=== PATIENT | female | born 1950 | race Caucasian/White ===

== ENCOUNTER 2017-02-28 13:10 | Inpatient (IN) | payer BC, MEDICARE ==
[2017-02-28] MEDS ORDERED: IPRATROPIUM-ALBUTEROL 3 ML NEB INHALATION STA ×2 (13:24→16:57)
[2017-02-28] MEDS ORDERED: methylPREDNISolone SOD SUCCI 125 MG/2 ML VIAL IV STA (13:24)
[2017-02-28] MEDS ORDERED: SODIUM CHLORIDE 0.9% 1,000 ML IV STA (13:24)
[2017-02-28] MEDS ORDERED: MAGNESIUM SULFATE-D5W PMX 1 GM in DEXTROSE/WATER 1 100ML.BAG IVPB STA (13:26)
--- NOTE | 2017-02-28 13:28 | ED ---
SOB HPI - General Stated Complaint: SOB Time Seen by Provider: 02/28/17 13:15 Source: patient, family, RN notes reviewed - History of Present Illness Initial Comments: This is a 66-year-old female history of COPD who presents with complaints of shortness of breath since been going on the past week but getting progressively worse over last couple days with fever cough and increased usage of her home nebulizer without much success or relief. No overt chest pain no definite phlegm production she has had however a recent cold with rhinorrhea. MD Complaint: shortness of breath - Related Data Home Medications Medication Instructions Recorded Confirmed Albuterol Inhaler [Ventolin Hfa 1 - 2 puff INHALATION RT-Q6H PRN 02/28/17 Inhaler] Budesonide [Pulmicort] 0.5 mg INHALATION RT-BID PRN 02/28/17 02/28/17 Ca/D3/Mag#11/Zinc/Camera [employer]otyping Engineer/Anibal/Bor 1 tab PO HS 02/28/17 02/28/17 [Caltrate 600+D Plus Tablet] Cefuroxime [Ceftin] 250 mg PO BID 02/28/17 02/28/17 Cetirizine HCl [Zyrtec] 10 mg PO DAILY 02/28/17 02/28/17 Ipratropium-Albuterol Nebulize 3 ml INHALATION RT-QID PRN 02/28/17 02/28/17 [Duoneb 0.5 mg-3 mg/3 ml Soln] Montelukast [Singulair] 10 mg PO HS 02/28/17 02/28/17 Multivitamins, Thera [Multivitamin 1 tab PO DAILY 02/28/17 02/28/17 (formulary)] [place]-3 Fatty Acids/Fish Oil [Fish 1 cap PO DAILY 02/28/17 02/28/17 Oil 1,000 mg Softgel] Valsartan/Hydrochlorothiazide 1 tab PO DAILY 02/28/17 02/28/17 [Valsartan-Hctz 160-12.5 mg Tab] Vit A,C & E/Lutein/Minerals 1 tab PO DAILY 02/28/17 02/28/17 [Ocuvite with Lutein Tablet] predniSONE 10 mg PO BID 02/28/17 02/28/17 tiZANidine [Zanaflex] 2 mg PO BID 02/28/17 02/28/17 Allergies Allergy/AdvReac Type Severity Reaction Status Date / Time mold Allergy Unknown Verified 02/28/17 13:59 Review of Systems ROS Statement: Those systems with pertinent positive or pertinent negative responses have been documented in the HPI. ROS Other: All systems not noted in ROS Statement are negative. General Exam - General Exam Comments Initial Comments: This is a well-developed well-nourished awake alert oriented 3 female General appearance: alert, anxious, in distress Head exam: Present: atraumatic, normocephalic, normal inspection Eye exam: Present: normal appearance, PERRL, EOMI. Absent: scleral icterus, conjunctival injection, periorbital swelling ENT exam: Present: normal exam, mucous membranes moist Neck exam: Present: normal inspection. Absent: tenderness, meningismus, lymphadenopathy Respiratory exam: Present: respiratory distress, wheezes, accessory muscle use, decreased breath sounds. Absent: rales, rhonchi, stridor Cardiovascular Exam: Present: normal rhythm, tachycardia, normal heart sounds. Absent: systolic murmur, diastolic murmur, rubs, gallop, clicks GI/Abdominal exam: Present: soft, normal bowel sounds. Absent: distended, tenderness, guarding, rebound, rigid Extremities exam: Present: normal inspection, full ROM, normal capillary refill. Absent: tenderness, pedal edema, joint swelling, calf tenderness Back exam: Present: normal inspection Neurological exam: Present: alert, oriented X3, CN II-XII intact Psychiatric exam: Present: normal affect, normal mood Skin exam: Present: warm, dry, intact, normal color. Absent: rash Course Vital Signs 02/28/17 02/28/17 02/28/17 13:16 13:34 13:43 Temperature 97.2 F L Pulse Rate 109 H 103 H 104 H Respiratory 32 H Rate Blood Pressure 155/81 O2 Sat by Pulse 91 L Oximetry 02/28/17 02/28/17 16:04 16:59 Temperature Pulse Rate 91 92 Respiratory 24 Rate Blood Pressure 174/69 O2 Sat by Pulse 95 Oximetry - Reevaluation(s) Reevaluation #1: 02/28/17 17:06 Reevaluation patient reveals that she is still dyspneic though slightly improved still with diffuse wheezing. So with accessory muscle use. Medical Decision Making - Medical Decision Making Reevaluation patient reveals that she still dyspneic still with wheezing still with accessory muscle use O she is improved somewhat. X-ray shows evidence of atelectasis I suspect a pneumonitis. I did discuss case and her family as well as with the hospitalist. The patient is requesting Dr. Trammell from pulmonary medicine for a consult. - Lab Data Result diagrams: 02/28/17 13:35 02/28/17 13:35 Lab Results 02/28/17 02/28/17 02/28/17 Range/Units 13:35 13:35 13:35 WBC 22.2 H (3.8-10.6) k/uL RBC 4.47 (3.80-5.40) m/uL Hgb 12.8 (11.4-16.0) gm/dL Hct 40.4 (34.0-46.0) % MCV 90.4 (80.0-100.0) fL MCH 28.6 (25.0-35.0) pg MCHC 31.6 (31.0-37.0) g/dL RDW 14.2 (11.5-15.5) % Plt Count 368 (150-450) k/uL Neutrophils % 89 % Lymphocytes % 7 % Monocytes % 2 % Eosinophils % 1 % Basophils % 1 % Neutrophils # 19.7 H (1.3-7.7) k/uL Lymphocytes # 1.6 (1.0-4.8) k/uL Monocytes # 0.5 (0-1.0) k/uL Eosinophils # 0.2 (0-0.7) k/uL Basophils # 0.1 (0-0.2) k/uL PT (9.0-12.0) sec INR (<1.1) APTT (22.0-30.0) sec D-Dimer (<0.60) mg/L FEU Sodium 136 L (137-145) mmol/L Potassium 4.3 (3.5-5.1) mmol/L Chloride 98 (98-107) mmol/L Carbon Dioxide 29 (22-30) mmol/L Anion Gap 9 mmol/L BUN 16 (7-17) mg/dL Creatinine 0.58 (0.52-1.04) mg/dL Est GFR (MDRD) Af Amer >60 (>60 ml/min/1.73 sqM) Est GFR (MDRD) Non-Af >60 (>60 ml/min/1.73 sqM) Glucose 148 H (74-99) mg/dL Calcium 10.0 (8.4-10.2) mg/dL Magnesium 2.0 (1.6-2.3) mg/dL Total Bilirubin 0.5 (0.2-1.3) mg/dL AST 78 H (14-36) U/L ALT 139 H (9-52) U/L Alkaline Phosphatase 114 (38-126) U/L Total Creatine Kinase <20 L (30-135) U/L CK-MB (CK-2) 0.7 (0.0-2.4) ng/mL CK-MB (CK-2) Rel Index 0.0 Troponin I <0.012 (0.000-0.034) ng/mL NT-Pro-B Natriuret Pep pg/mL Total Protein 7.5 (6.3-8.2) g/dL Albumin 4.3 (3.5-5.0) g/dL Influenza Type A RNA (Not Detectd) Influenza Type B (PCR) (Not Detectd) 02/28/17 02/28/17 02/28/17 Range/Units 13:35 13:35 13:35 WBC (3.8-10.6) k/uL RBC (3.80-5.40) m/uL Hgb (11.4-16.0) gm/dL Hct (34.0-46.0) % MCV (80.0-100.0) fL MCH (25.0-35.0) pg MCHC (31.0-37.0) g/dL RDW (11.5-15.5) % Plt Count (150-450) k/uL Neutrophils % % Lymphocytes % % Monocytes % % Eosinophils % % Basophils % % Neutrophils # (1.3-7.7) k/uL Lymphocytes # (1.0-4.8) k/uL Monocytes # (0-1.0) k/uL Eosinophils # (0-0.7) k/uL Basophils # (0-0.2) k/uL PT 10.1 (9.0-12.0) sec INR 1.0 (<1.1) APTT 20.4 L (22.0-30.0) sec D-Dimer 0.48 (<0.60) mg/L FEU Sodium (137-145) mmol/L Potassium (3.5-5.1) mmol/L Chloride (98-107) mmol/L Carbon Dioxide (22-30) mmol/L Anion Gap mmol/L BUN (7-17) mg/dL Creatinine (0.52-1.04) mg/dL Est GFR (MDRD) Af Amer (>60 ml/min/1.73 sqM) Est GFR (MDRD) Non-Af (>60 ml/min/1.73 sqM) Glucose (74-99) mg/dL Calcium (8.4-10.2) mg/dL Magnesium (1.6-2.3) mg/dL Total Bilirubin (0.2-1.3) mg/dL AST (14-36) U/L ALT (9-52) U/L Alkaline Phosphatase (38-126) U/L Total Creatine Kinase (30-135) U/L CK-MB (CK-2) (0.0-2.4) ng/mL CK-MB (CK-2) Rel Index Troponin I (0.000-0.034) ng/mL NT-Pro-B Natriuret Pep 112 pg/mL Total Protein (6.3-8.2) g/dL Albumin (3.5-5.0) g/dL Influenza Type A RNA Not Detected (Not Detectd) Influenza Type B (PCR) Not Detected (Not Detectd) - Radiology Data Radiology results: report reviewed (I did review the x-ray report is evidence of a left lower lobe plate atelectasis), image reviewed Critical Care Time Critical Care Time: Yes Critical Care Time: 35 minutes of critical care time which includes initial presentation with history physical lab x-rays reevaluation patient on several occasions. Discussion with patient family regarding the findings evaluation x-rays and labs. Evaluation of patient response to therapy. Discussion with the admitting physician. Admission orders and documentation of the above Disposition Clinical Impression: Acute exacerbation of chronic obstructive airways disease, Adult respiratory distress syndrome, Pneumonitis, Leukocytosis, Failure of outpatient treatment Disposition: ADMITTED IP TO THIS [facility] Condition: Stable
[2017-02-28] MEDS ORDERED: KETOROLAC 30 MG/ML 1 ML VIAL IVP STA ×2 (13:29→13:39)
[2017-02-28 13:48] LABS: Basophils # (A) 0.1 k/uL (0-0.2); Basophils % (A) 1 %; CH 28.9; CHCM 32.1; Eosinophils # (A) 0.2 k/uL (0-0.7); Eosinophils % (A) 1 %; HCT 40.4 % (34.0-46.0); HDW 2.26; HGB 12.8 gm/dL (11.4-16.0); Luc # (Auto) 0.08; Luc % (Auto) 0; Lymphocytes # (A) 1.6 k/uL (1.0-4.8); Lymphocytes % (A) 7 %; MCH 28.6 pg (25.0-35.0); MCHC 31.6 g/dL (31.0-37.0); MCV 90.4 fL (80.0-100.0); Mean Platelet Volume 8.1; Monocytes # (A) 0.5 k/uL (0-1.0); Monocytes % (A) 2 %; Neutrophils # (A) 19.7 k/uL (1.3-7.7); Neutrophils % (A) 89 %; RBC 4.47 m/uL (3.80-5.40); RDW 14.2 % (11.5-15.5); WBC 22.2 k/uL (3.8-10.6)
[2017-02-28 14:00] LABS: ALT 139 U/L (9-52); AST 78 U/L (14-36); Alkaline Phosphatase 114 U/L (38-126); Anion Gap 9 mmol/L; Blood Urea Nitrogen 16 mg/dL (7-17); Carbon Dioxide 29 mmol/L (22-30); Chloride 98 mmol/L (98-107); Glucose 148 mg/dL (74-99); Non-African American GFR(MDRD) >60 (>60 ml/min/1.73 sqM); Potassium 4.3 mmol/L (3.5-5.1); Sodium 136 mmol/L (137-145); Total Bilirubin 0.5 mg/dL (0.2-1.3); Total Protein 7.5 g/dL (6.3-8.2)
[2017-02-28 14:05] LABS: Prothrombin Time 10.1 sec (9.0-12.0)
[2017-02-28 14:19] LABS: Creatine Kinase <20 U/L (30-135)
[2017-02-28 14:27] LABS: Partial Thromboplastin Time 20.4 sec (22.0-30.0)
[2017-02-28 14:31] LABS: Creatine Kinase MB 0.7 ng/mL (0.0-2.4); Troponin I <0.012 ng/mL (0.000-0.034)
--- NOTE | 2017-02-28 14:51 | XR ---
EXAMINATION TYPE: XR chest 2V DATE OF EXAM: 02/28/2017 2:11 PM COMPARISON: NONE INDICATION: Difficulty breathing, COPD, short of breath TECHNIQUE: Single frontal view of the chest is obtained. FINDINGS: The heart size is normal. The pulmonary vasculature is normal. The lungs are clear. There is hyperinflation flattening the diaphragms compatible with COPD. The frontal projection some m inimal linear opacity may be above the left diaphragm suggestive of some mild plate atelectasis. IMPRESSION: 1. COPD 2. Mild plate atelectasis left base
[2017-02-28] MEDS ORDERED: LEVOFLOXACIN 750MG-D5W PMX 750 MG in DEXTROSE/WATER 1 150ML.BAG IVPB STA (17:16)
[2017-02-28] MEDS ORDERED: ALPRAZolam 0.25 MG TAB PO PRN (19:01)
[2017-02-28] MEDS ORDERED: TEMAZEPAM 15 MG CAP PO PRN (19:01)
[2017-02-28] MEDS: methylPREDNISolone SOD SUCCI 125 MG/2 ML VIAL IV SCH ×2 (19:02→23:38)
[2017-02-28] MEDS: SODIUM CHLORIDE 0.9% 1,000 ML IV SCH (19:03)
[2017-02-28] MEDS: FORMOTEROL FUMARATE 20 MCG/2 ML NEBU INHALATION SCH (19:52)
[2017-02-28] MEDS: BUDESONIDE 1 MG/2 ML NEBU INHALATION SCH (19:52)
[2017-02-28] MEDS: IPRATROPIUM-ALBUTEROL 3 ML NEB INHALATION SCH ×2 (19:53→23:38)
[2017-02-28] MEDS ORDERED: IPRATROPIUM-ALBUTEROL 3 ML NEB INHALATION SCH (20:00)
[2017-02-28] MEDS: MONTELUKAST 10 MG TAB PO SCH (20:19)
[2017-02-28] MEDS: CALCIUM CARB-VIT D 500MG-200UN 1 EACH TAB PO SCH (20:19)
[2017-02-28] MEDS: HEPARIN SODIUM,PORCINE 5,000 UNIT/ML 1 ML VIAL SQ SCH (20:20)
[2017-03-01] MEDS: IPRATROPIUM-ALBUTEROL 3 ML NEB INHALATION SCH ×5 (03:33→20:07)
[2017-03-01 04:48] VITALS: BMI 25.6
[2017-03-01] MEDS: methylPREDNISolone SOD SUCCI 125 MG/2 ML VIAL IV SCH ×3 (06:03→17:46)
[2017-03-01] MEDS: LORATADINE 10 MG TAB PO SCH (07:12)
[2017-03-01] MEDS: HYDROCHLOROTHIAZIDE 12.5 MG CAP PO SCH (07:12)
[2017-03-01] MEDS: HEPARIN SODIUM,PORCINE 5,000 UNIT/ML 1 ML VIAL SQ SCH ×2 (07:12→21:00)
[2017-03-01] MEDS: VALSARTAN 160 MG TAB PO SCH (07:12)
[2017-03-01] MEDS: BUDESONIDE 1 MG/2 ML NEBU INHALATION SCH ×2 (07:22→20:07)
[2017-03-01] MEDS: FORMOTEROL FUMARATE 20 MCG/2 ML NEBU INHALATION SCH ×2 (07:22→20:07)
[2017-03-01 08:00] LABS: Basophils # (A) 0.1 k/uL (0-0.2); Basophils % (A) 0 %; CHCM 31.7; Eosinophils # (A) 0.1 k/uL (0-0.7); Eosinophils % (A) 0 %; HCT 37.3 % (34.0-46.0); HDW 2.14; HGB 11.8 gm/dL (11.4-16.0); Luc # (Auto) 0.08; Luc % (Auto) 0; Lymphocytes # (A) 1.6 k/uL (1.0-4.8); Lymphocytes % (A) 6 %; MCH 29.2 pg (25.0-35.0); MCHC 31.6 g/dL (31.0-37.0); MCV 92.1 fL (80.0-100.0); Monocytes # (A) 0.7 k/uL (0-1.0); Monocytes % (A) 3 %; Neutrophils # (A) 22.5 k/uL (1.3-7.7); Neutrophils % (A) 90 %; RBC 4.04 m/uL (3.80-5.40); RDW 14.3 % (11.5-15.5)
[2017-03-01 08:15] LABS: ALT 102 U/L (9-52); AST 36 U/L (14-36); Alkaline Phosphatase 86 U/L (38-126); Anion Gap 11 mmol/L; Blood Urea Nitrogen 15 mg/dL (7-17); Carbon Dioxide 27 mmol/L (22-30); Chloride 97 mmol/L (98-107); Glucose 161 mg/dL (74-99); Non-African American GFR(MDRD) >60 (>60 ml/min/1.73 sqM); Potassium 4.7 mmol/L (3.5-5.1); Sodium 135 mmol/L (137-145); Total Bilirubin 0.5 mg/dL (0.2-1.3); Total Protein 6.6 g/dL (6.3-8.2)
[2017-03-01] MEDS ORDERED: VIT A,C & E-LUTEIN-MINERALS 1 EACH TAB PO SCH (09:00)
[2017-03-01 10:27] LABS: Appearance,Urine Clear (Clear); Bilirubin,Urine Negative (Negative); Glucose,Urine (UA) Negative (Negative); Ketones,Urine Negative (Negative); Leukocyte Esterase,Urine Negative (Negative); Nitrite,Urine Negative (Negative); Protein,Urine Negative (Negative); Specific Gravity,Urine 1.006 (1.001-1.035); UA Billing (MACRO vs. MICRO) CHEM; Urobilinogen,Urine <2.0 mg/dL (<2.0)
--- NOTE | 2017-03-01 11:56 | HP ---
DATE OF ADMISSION: CHIEF COMPLAINT: Shortness of breath. HISTORY OF PRESENT ILLNESS: This 67-year-old woman with a past history of COPD, hypertension, and history of nicotine dependence, being followed by in the outpatient setting, not feeling well over the past 2 to 3 weeks. The patient was having increasing shortness of breath, cough and sputum and the patient came to [facility] and was admitted to the hospital for further evaluation and treatment. The chest x-ray on admission showed chronic obstructive pulmonary disease and mild atelectasis at the left base. Patient apparently spent the past few months in different hospitals related to her brother's illness according to the family. There is no history of fever, rigors or chills. No history of headache, loss of consciousness or seizures. Past medical history: COPD, hypertension, history of nicotine dependence. Medications prior to admission include: 1. Prednisone 10 mg b.i.d. 2. DuoNeb q.i.d. p.r.n. 3. Valsartan. 4. Hydrochlorothiazide. 5. Singulair 10 mg. 6. Pulmicort 0.5. 7. Zanaflex 2 mg b.i.d. 8. Ceftin 250 mg b.i.d. 9. Ventolin HFA one to two puffs q.6h p.r.n. 10. Ocuvite one tablet p.o. daily. 11. Fish oil one daily. 12. Multivitamins one p.o. daily. 14. Calcium with vitamin D q.h.s. ALLERGIES MOLD. FAMILY HISTORY: No history of heart disease or strokes in the family. SOCIAL HISTORY: Previous history of smoking. No history of alcohol intake. REVIEW OF SYSTEMS: HEENT: No diminishing hearing, diminished vision. CARDIOVASCULAR: No angina or palpitations. RESPIRATORY: As mentioned earlier. GI: As mentioned earlier. : No dysuria. Nervous: No numbness or weakness. ALLERGY/IMMUNOLOGY: No asthma or hayfever. MUSCULOSKELETAL: As mentioned earlier. HEMATOLOGY/ONCOLOGY: No history of anemia. ENDOCRINE: No history of diabetes or hypothyroidism. CONSTITUTIONAL: As mentioned earlier. DERMATOLOGY: Negative. RHEUMATOLOGY: Negative. PSYCHIATRY: As mentioned earlier. PHYSICAL EXAMINATION: The patient is alert and oriented times three. Pulse 102, blood pressure 116/77, respiratory rate 24, temperature 97.2, pulse ox 92% on 2 L. HEENT: Conjunctivae normal. Oral mucosa is moist. NECK: No jugular venous distention. No carotid bruit. No lymph node enlargement. CARDIOVASCULAR: S1, S2 muffled. RESPIRATORY: Breathing efforts markedly increased. Accessory muscles respiration acting. CARDIOVASCULAR SYSTEM: S1, S2 muffled. No murmur. No thrills. RESPIRATORY: Breath sounds diminished at the bases. Bilateral scattered rhonchi and crackles, right more than left. Expiratory wheezing also present. ABDOMEN: Soft, nontender. No mass palpable. LEGS: No edema. No swelling. Nervous system: Higher functions as mentioned earlier. Moves all four limbs. No focal deficits. LYMPHATICS: No lymph nodes palpable in the neck, axillae or groin. SKIN: No ulcer, rash or bleeding. LABS: WBC 20.2, hemoglobin 12.8, sodium is 136, AST 78, ALT is 139. Influenza is negative. ASSESSMENT: 1. Chronic obstructive pulmonary disease exacerbation with acute purulent tracheobronchitis with failure of outpatient treatment. 2. Increased WBC. 3. Hyponatremia. 4. Increased AST, ALT, of undetermined etiology. 5. Increased random blood sugar. 6. Chronic obstructive pulmonary disease history. 7. Hypertension. 8. History of nicotine dependence. RECOMMENDATIONS AND DISCUSSION: In this 67-year-old woman who presented with multiple complex medical issues, we will monitor the patient closely. Continue current medications, continue symptomatic treatment, optimize bronchodilators, avoid toxic medications. Otherwise, I would recommend repeat labs and pulmonary consultation. Guarded prognosis because of multiple complex medical issues. Further recommendations to follow. A copy of dictation forwarded to Dr. Jennifer KUMAR
[2017-03-01] MEDS: MULTIVITAMINS, THERA 1 EACH TAB PO SCH (12:01)
--- NOTE | 2017-03-01 16:19 | CONS ---
DATE OF CONSULTATION: 03/01/2017 REASON FOR CONSULTATION: Acute chronic obstructive pulmonary disease exacerbation and pneumonia. HISTORY OF PRESENTING ILLNESS: Ms. Melinda Carson is a pleasant 67-year-old female with extensive history of smoking and nicotine use and chronic hypoxic respiratory failure and baseline, severe chronic obstructive pulmonary disease, emphysema. Patient is on home oxygen and nebulizer treatment. She has not been feeling well for the last 3 or 4 days with increasing shortness of breath, wheezing, cough, congestion and not feeling well. Her sputum were turning purulent as well. With those problems, she presented into the emergency department and was subsequently evaluated and admitted into the hospital. Of note that she has been using her nebulizer more around the clock on a regular basis without any significant relief. Patient did have some episodes of cold and upper respiratory type process, but she did get a flu shot later on last year as well as pneumonia shot as well. Past medical history is significant for end-stage lung disease secondary to severe chronic obstructive pulmonary disease, emphysema, chronic persistent asthma, hypertension, hypertensive cardiovascular disease. Anxiety disorder, history of seasonal allergies. ALLERGIES: MOLD. Medications at home include: 1. Prednisone 10 mg p.o. 2 times a day. 2. DuoNeb unit dose updraft 4 times a day. 3. Losartan hydrochlorothiazide 1 daily. 4. Singulair 10 mg daily. 5. Pulmicort 0.5/2 times a day. 6. Zanaflex 2 mg 2 times a day. 7. Ceftin 250 b.i.d. 8. Albuterol inhaler 2 puffs 4 times a day as needed. 9. [place]-3 fatty acid. 10. Multivitamin. 11. ( ). 12. Calcium and vitamin D. 13. ( ) on a daily basis. In addition to above medications at home include: 1. IV fluid normal saline KVO. 2. Levaquin 500 mg daily p.o. 3. IV Solu-Medrol 60 mg q.6h. FAMILY HISTORY AND SOCIAL HISTORY: Previous history of smoking and nicotine abuse in the past. Otherwise unremarkable and noncontributory. REVIEW OF SYSTEMS: Otherwise unremarkable and noncontributory. On examination, her most recent vitals include blood pressure is 130/60, respiratory rate 18, pulse 110, temperature 98, saturation of 94% on 3 liters oxygen. HEENT: Atraumatic, normocephalic. Pharynx is clear. Narrow pharyngeal opening is present. NECK: Supple without lymphadenopathy, jugular venous distention or carotid bruit. LUNGS: Bilateral fine inspiratory and expiratory wheezing and rhonchi are present. HEART: Regular rate and rhythm. S1 and S2 audible. ABDOMEN: Soft. No rebound or rigidity. EXTREMITIES: +1 peripheral pulses. NEUROLOGICAL EXAMINATION: Otherwise, awake and alert. No focal neurologic deficits. Labs reviewed. White cell count is 22,000 up to 25,000, hemoglobin at 12 and hematocrit 40, platelet count 368,000. PT, INR, PTT within normal limits, d-dimer is 0.48, sodium is 138, potassium 4.3. BUN 16, and 0.58. The rest of the chemistry is normal except for AST and ALT are 70 and 139, came down to 36 and 102. Urinalysis unremarkable, influenza A and B both negative. The chest x-ray performed in the emergency department reviewed . There is COPD-like changes along with some atelectasis at the left base. The EKG performed in the emergency room reviewed. Normal sinus rhythm. IMPRESSION: 1. Systemic inflammatory response syndrome like process related to purulent tracheobronchitis and acute chronic obstructive pulmonary disease exacerbation. 2. Acute on chronic hypoxic respiratory failure with severe chronic obstructive pulmonary disease. 3. Upper respiratory process; however, the preliminary and initial fluids swabs has been negative. PLAN: Agree with broad-spectrum antibiotics, steroids and breathing treatments. Continue supportive care, follow clinical course closely. Will send sputum for Gram stain and culture as well.
[2017-03-01] MEDS: LEVOFLOXACIN 500 MG TAB PO SCH (17:45)
[2017-03-01] MEDS: SODIUM CHLORIDE 0.9% 1,000 ML IV SCH (17:47)
[2017-03-01] MEDS ORDERED: IPRATROPIUM-ALBUTEROL 3 ML NEB INHALATION PRN (20:41)
[2017-03-01] MEDS: MONTELUKAST 10 MG TAB PO SCH (21:01)
[2017-03-01] MEDS: CALCIUM CARB-VIT D 500MG-200UN 1 EACH TAB PO SCH (21:01)
[2017-03-02] MEDS: methylPREDNISolone SOD SUCCI 125 MG/2 ML VIAL IV SCH ×4 (00:20→17:25)
[2017-03-02] MEDS: VALSARTAN 160 MG TAB PO SCH (07:36)
[2017-03-02] MEDS: LORATADINE 10 MG TAB PO SCH (07:36)
[2017-03-02] MEDS: HYDROCHLOROTHIAZIDE 12.5 MG CAP PO SCH (07:36)
[2017-03-02] MEDS: HEPARIN SODIUM,PORCINE 5,000 UNIT/ML 1 ML VIAL SQ SCH ×2 (07:37→20:54)
[2017-03-02] MEDS: IPRATROPIUM-ALBUTEROL 3 ML NEB INHALATION SCH ×4 (07:45→20:05)
[2017-03-02] MEDS: BUDESONIDE 1 MG/2 ML NEBU INHALATION SCH ×2 (07:45→20:05)
[2017-03-02] MEDS: FORMOTEROL FUMARATE 20 MCG/2 ML NEBU INHALATION SCH ×2 (07:45→20:05)
[2017-03-02 08:03] LABS: Basophils # (A) 0.1 k/uL (0-0.2); Basophils % (A) 0 %; CH 29.1; CHCM 32.6; Eosinophils # (A) 0.1 k/uL (0-0.7); Eosinophils % (A) 0 %; HCT 36.1 % (34.0-46.0); HGB 11.7 gm/dL (11.4-16.0); Luc % (Auto) 1; Lymphocytes # (A) 2.4 k/uL (1.0-4.8); Lymphocytes % (A) 10 %; MCH 29.1 pg (25.0-35.0); MCHC 32.3 g/dL (31.0-37.0); MCV 90.1 fL (80.0-100.0); Mean Platelet Volume 7.8; Monocytes # (A) 1.3 k/uL (0-1.0); Monocytes % (A) 6 %; Neutrophils # (A) 19.6 k/uL (1.3-7.7); Neutrophils % (A) 83 %; RBC 4.01 m/uL (3.80-5.40); RDW 14.5 % (11.5-15.5); WBC 23.7 k/uL (3.8-10.6); WBC (Perox) 25.77
[2017-03-02 08:24] LABS: ALT 81 U/L (9-52); AST 24 U/L (14-36); Alkaline Phosphatase 80 U/L (38-126); Anion Gap 9 mmol/L; Blood Urea Nitrogen 19 mg/dL (7-17); Carbon Dioxide 30 mmol/L (22-30); Chloride 100 mmol/L (98-107); Glucose 103 mg/dL (74-99); Non-African American GFR(MDRD) >60 (>60 ml/min/1.73 sqM); Potassium 4.5 mmol/L (3.5-5.1); Sodium 139 mmol/L (137-145); Total Bilirubin 0.5 mg/dL (0.2-1.3); Total Protein 6.5 g/dL (6.3-8.2)
--- NOTE | 2017-03-02 08:52 | PN ---
DATE OF SERVICE: 03/01/2017 This is a 67-year-old woman who was admitted with COPD acute exacerbation, also recurrent tracheobronchitis. The patient is being closely monitored at this time. Dr. Trammell has seen the patient and care has been coordinated. No chest pain or palpitation. . No fever. On exam, alert and oriented x3. Pulse is 110, blood pressure is 174/79, respirations 18, temperature 97.8, pulse ox 93% on 3 L. HEENT: Conjunctivae normal. NECK: No jugular venous distension. CARDIOVASCULAR SYSTEM: S1, S2, muffled. RESPIRATORY: Breath sounds diminished at the bases. Scattered rhonchi, no crackles. Abdomen is soft, nontender. No mass palpable. LEGS: No edema, no swelling. NERVOUS SYSTEM: Higher functions as mentioned, moves all 4 limbs. LYMPHATIC: No lymph node enlargement if the neck, axillae or groin. SKIN: No ulcer, rash or bleeding. NERVOUS SYSTEM: No focal deficits. Labs are at this time shows bilateral scattered rhonchi. WBC is 25. Sodium 135. Influenza is negative. ASSESSMENT: 1. Chronic obstructive pulmonary disease acute exacerbation, with acute purulent tracheobronchitis with failure of outpatient treatment as well as systemic inflammatory response syndrome. 2. Increased WBC. 3. Hyponatremia. 4. Increased AST, ALT of undetermined etiology. 5. Increased random blood sugar. 6. Chronic obstructive pulmonary disease history. 7. Hypertension. 8. History of nicotine dependence. 9. FULL CODE. RECOMMENDATION: In this 67-year-old woman who presented with multiple complex medical issues, will monitor the patient closely. Continue with the current medications and continue the symptomatic treatment. Continue with the broad-spectrum IV antibiotics. Continue with bronchodilators. Continue the rest of the medications, DVT prophylaxis. Closely follow with Pulmonary. Guarded prognosis because of multiple complex medical issues. Further recommendations to follow.
--- NOTE | 2017-03-02 11:55 | P.PN ---
Subjective This is a pleasant 67-year-old female being evaluated and examined today on the fifth floor. This patient has an extensive history of smoking Shae nicotine dependence. Patient also has chronic hypoxic respiratory failure at baseline, and severe chronic obstructive pulmonary disease, emphysema. Patient is on home oxygen and nebulizer treatments. She has not been feeling well for the last 3 or 4 days and has some increase in her shortness of breath, wheezing cough, congestion and generalized malaise. Her sputum was also purulent. With those problems she presented to the emergency department and was admitted to the hospital. She has been using her nebulizer more freely around the clock at home without any significant relief. Upon examination the patient is resting up in bed on 3 L of oxygen. She states she continues to feel wheezy and congested. She is unable to bring up any of her secretions due to the thickness. Objective - Vital Signs Vital signs: Vital Signs Temp 97.8 F 03/02/17 07:00 Pulse 108 H 03/02/17 11:32 Resp 18 03/02/17 08:00 BP 135/62 03/02/17 07:00 Pulse Ox 94 L 03/02/17 07:48 Intake & Output 03/01/17 03/02/17 03/02/17 18:59 06:59 18:59 Intake Total 1600 1180 600 Output Total 600 Balance 1000 1180 600 Weight 63.503 kg Intake: Intake, IV Titration 160 Amount Sodium Chloride 0.9% 1, 160 000 ml @ 20 mls/hr IV . Q24H LEIDY Rx#:[id number] Oral 1440 1180 600 Output: Urine 600 Other: # Voids 2 2 - Exam GENERAL EXAM: Alert, active, comfortable in no apparent distress. HEAD: Normocephalic. EYES: Normal reaction of pupils, equal size. NOSE: Clear with pink turbinates. THROAT: No erythema or exudates. NECK: No masses, no JVD. CHEST: No chest wall deformity. LUNGS: Equal air entry, lung sounds course in nature. She does have finances to her and expiratory wheezes and rhonchi scattered throughout. CVS: S1 and S2 normal with no audible mumurs, regular rhythm. ABDOMEN: No hepatosplenomegaly, normal bowel sounds, no guarding or rigidity. EXTREMITIES: No edema noted, pedal pulses palpable. SKIN: No rashes CENTRAL NERVOUS SYSTEM: No focal deficits, tone is normal in all 4 extremities. - Labs CBC & Chem 7: 03/02/17 07:21 03/02/17 07:21 Labs: Abnormal Lab Results - Last 24 Hours (Table) 03/02/17 03/02/17 Range/Units 07:21 07:21 WBC 23.7 H (3.8-10.6) k/uL Neutrophils # 19.6 H (1.3-7.7) k/uL Monocytes # 1.3 H (0-1.0) k/uL BUN 19 H (7-17) mg/dL Glucose 103 H (74-99) mg/dL ALT 81 H (9-52) U/L Assessment and Plan Plan: Assessment Systemic inflammatory response syndrome-like process related to her purulent tracheobronchitis Purulent tracheobronchitis Acute exacerbation of severe chronic obstructive pulmonary disease Acute on chronic hypoxic respiratory failure Chronic severe persistent asthma Hypertension Plan Medications have been reviewed and will be continued as ordered. We will continue with her nebulizer treatments, pulmonary hygiene, and supportive care. Mucinex has been ordered to help with her secretions. Repeat chest x-ray tomorrow. Incentive spirometer and flutter valve initiated and encouraged. We will continue to monitor labs/results and adjust treatment as necessary. I performed an examination of the patient and discussed their management with the nurse practitioner. I have reviewed the nurse practitioner's note and agree with the documented findings and plan of care.
[2017-03-02] MEDS: MULTIVITAMINS, THERA 1 EACH TAB PO SCH (12:19)
[2017-03-02] MEDS: guaiFENesin 600 MG TABLET.ER PO SCH ×2 (12:19→20:53)
[2017-03-02] MEDS: SODIUM CHLORIDE 0.9% 1,000 ML IV SCH (17:16)
[2017-03-02] MEDS: LEVOFLOXACIN 500 MG TAB PO SCH (17:23)
[2017-03-02] MEDS: CALCIUM CARB-VIT D 500MG-200UN 1 EACH TAB PO SCH (20:54)
[2017-03-02] MEDS: MONTELUKAST 10 MG TAB PO SCH (20:54)
[2017-03-03] MEDS: methylPREDNISolone SOD SUCCI 125 MG/2 ML VIAL IV SCH ×3 (00:20→12:42)
--- NOTE | 2017-03-03 05:44 | PN ---
This 67-year-old woman who was admitted with COPD acute exacerbation as well as acute purulent tracheobronchitis is still having some shortness of breath. Pulmonary Dr. Trammell is following the patient closely. No chest pain or palpitations. No fever. On exam, alert and oriented x3. Pulse 102, blood pressure 137/63, respirations 18, temperature 97.8, pulse ox 94% on 3 L. HEENT: Conjunctivae normal. NECK: No jugular venous distention. CARDIOVASCULAR: S1 and S2, muffled. RESPIRATORY: Breath sounds diminished at the bases. Bilateral scattered rhonchi and crackles. ABDOMEN: Soft, nontender. LEGS: No edema, no swelling. NERVOUS SYSTEM: No focal deficits. LABS: WBC 23.7, hemoglobin 11.7. Sodium 139, potassium 4.5. ASSESSMENT AND PLAN: 1. Chronic obstructive pulmonary disease acute exacerbation with acute purulent tracheobronchitis with failure of outpatient treatment as well as systemic inflammatory response syndrome. 2. Increased WBC. 3. Hyponatremia. 4. Increased AST, ALT, of undetermined etiology. 5. Increased random blood sugar. 6. Chronic obstructive pulmonary disease history. 7. Hypertension, essential. 8. History of nicotine dependence. 9. FULL CODE. RECOMMENDATIONS AND DISCUSSION: In this 67-year-old woman who presented with multiple complex medical issues, we will monitor the patient closely. Continue the current medications and symptomatic treatment. Otherwise at this time, I would recommend continue with bronchodilators. Continue with and closely follow with pulmonary. Further recommendations to follow. MTDD
[2017-03-03] MEDS: FORMOTEROL FUMARATE 20 MCG/2 ML NEBU INHALATION SCH ×2 (07:32→19:31)
[2017-03-03] MEDS: BUDESONIDE 1 MG/2 ML NEBU INHALATION SCH ×2 (07:32→19:31)
[2017-03-03] MEDS: IPRATROPIUM-ALBUTEROL 3 ML NEB INHALATION SCH ×4 (07:32→19:31)
[2017-03-03 07:41] LABS: Basophils # (A) 0.1 k/uL (0-0.2); Basophils % (A) 0 %; CH 29.2; CHCM 31.6; Eosinophils # (A) 0.1 k/uL (0-0.7); Eosinophils % (A) 0 %; HCT 39.6 % (34.0-46.0); HDW 2.06; HGB 12.5 gm/dL (11.4-16.0); Luc # (Auto) 0.09; Luc % (Auto) 0; Lymphocytes # (A) 1.4 k/uL (1.0-4.8); Lymphocytes % (A) 7 %; MCH 29.4 pg (25.0-35.0); MCHC 31.6 g/dL (31.0-37.0); Mean Platelet Volume 7.8; Monocytes # (A) 0.7 k/uL (0-1.0); Monocytes % (A) 3 %; Neutrophils # (A) 18.5 k/uL (1.3-7.7); Neutrophils % (A) 89 %; RBC 4.26 m/uL (3.80-5.40); RDW 14.3 % (11.5-15.5); WBC 20.9 k/uL (3.8-10.6); WBC (Perox) 22.27
--- NOTE | 2017-03-03 07:52 | XR ---
EXAMINATION TYPE: XR chest 2V DATE OF EXAM: 03/03/2017 7:31 AM COMPARISON: 02/28/2017 HISTORY: Shortness of breath TECHNIQUE: Frontal and lateral views of the chest are obtained. FINDINGS: Scattered senescent parenchymal changes noted. Hyperinflation compatible with COPD. Linear atelectasis at the right medial lung base. Heart size is stable. Mediastinal structures are stable and grossly unremarkable. No evidence for hilar prominence. Degenerative changes dorsal spine. IMPRESSION: 1. No evidence for acute pulmonary disease.Linear atelectasis at the right medial lung base.
[2017-03-03 08:09] LABS: ALT 75 U/L (9-52); AST 27 U/L (14-36); Alkaline Phosphatase 79 U/L (38-126); Anion Gap 11 mmol/L; Blood Urea Nitrogen 23 mg/dL (7-17); Calcium 10.1 mg/dL (8.4-10.2); Carbon Dioxide 26 mmol/L (22-30); Chloride 98 mmol/L (98-107); Glucose 135 mg/dL (74-99); Non-African American GFR(MDRD) >60 (>60 ml/min/1.73 sqM); Potassium 4.7 mmol/L (3.5-5.1); Sodium 135 mmol/L (137-145); Total Bilirubin 0.6 mg/dL (0.2-1.3); Total Protein 6.9 g/dL (6.3-8.2)
[2017-03-03] MEDS: VALSARTAN 160 MG TAB PO SCH (09:02)
[2017-03-03] MEDS: LORATADINE 10 MG TAB PO SCH (09:02)
[2017-03-03] MEDS: HEPARIN SODIUM,PORCINE 5,000 UNIT/ML 1 ML VIAL SQ SCH ×2 (09:02→21:43)
[2017-03-03] MEDS: guaiFENesin 600 MG TABLET.ER PO SCH ×2 (09:02→21:43)
[2017-03-03] MEDS: HYDROCHLOROTHIAZIDE 12.5 MG CAP PO SCH (09:03)
[2017-03-03] MEDS: HYDROcodone/APAP 5-325MG 1 EACH TAB PO PRN ×2 (09:03→17:44)
[2017-03-03] MEDS: MULTIVITAMINS, THERA 1 EACH TAB PO SCH (12:42)
--- NOTE | 2017-03-03 15:57 | P.PN ---
Subjective This is a pleasant 67-year-old female being evaluated and examined today on the fifth floor. This patient has an extensive history of smoking Shae nicotine dependence. Patient also has chronic hypoxic respiratory failure at baseline, and severe chronic obstructive pulmonary disease, emphysema. Patient is on home oxygen and nebulizer treatments. She has not been feeling well for the last 3 or 4 days and has some increase in her shortness of breath, wheezing cough, congestion and generalized malaise. Her sputum was also purulent. With those problems she presented to the emergency department and was admitted to the hospital. She has been using her nebulizer more freely around the clock at home without any significant relief. Upon examination the patient is resting up in bed on 3 L of oxygen. She states she is starting to feel less wheezy and congested. She is unable to bring up any of her secretions due to the thickness , however she feels this is improving. She also states she is beginning to get her energy back. Objective - Vital Signs Vital signs: Vital Signs Temp 97.7 F 03/03/17 15:00 Pulse 102 H 03/03/17 15:40 Resp 16 03/03/17 15:00 BP 138/63 03/03/17 15:00 Pulse Ox 94 L 03/03/17 15:00 Intake & Output 03/02/17 03/03/17 03/03/17 18:59 06:59 18:59 Intake Total 2250 480 500 Balance 2250 480 500 Intake: Intake, IV Titration 450 140 Amount Sodium Chloride 0.9% 1, 450 140 000 ml @ 20 mls/hr IV . Q24H [facility] Rx#:[id number] Oral 1800 480 360 Other: # Voids 3 - Exam GENERAL EXAM: Alert, active, comfortable in no apparent distress. HEAD: Normocephalic. EYES: Normal reaction of pupils, equal size. NOSE: Clear with pink turbinates. THROAT: No erythema or exudates. NECK: No masses, no JVD. CHEST: No chest wall deformity. LUNGS: Equal air entry, lung sounds course in nature. She does have faint expiratory wheezes and rhonchi scattered throughout. CVS: S1 and S2 normal with no audible mumurs, regular rhythm. ABDOMEN: No hepatosplenomegaly, normal bowel sounds, no guarding or rigidity. EXTREMITIES: No edema noted, pedal pulses palpable. SKIN: No rashes CENTRAL NERVOUS SYSTEM: No focal deficits, tone is normal in all 4 extremities. - Labs CBC & Chem 7: 03/03/17 07:17 03/03/17 07:17 Labs: Abnormal Lab Results - Last 24 Hours (Table) 03/03/17 03/03/17 Range/Units 07:17 07:17 WBC 20.9 H (3.8-10.6) k/uL Neutrophils # 18.5 H (1.3-7.7) k/uL Sodium 135 L (137-145) mmol/L BUN 23 H (7-17) mg/dL Glucose 135 H (74-99) mg/dL ALT 75 H (9-52) U/L Assessment and Plan Plan: Assessment Systemic inflammatory response syndrome-like process related to her purulent tracheobronchitis Purulent tracheobronchitis Acute exacerbation of severe chronic obstructive pulmonary disease Acute on chronic hypoxic respiratory failure Chronic severe persistent asthma Hypertension Plan Medications have been reviewed and will be continued as ordered. We will continue with her nebulizer treatments, pulmonary hygiene, and supportive care. Mucinex has been ordered to help with her secretions. Chest xray reviewed. Incentive spirometer and flutter valve initiated and encouraged. We will continue to monitor labs/results and adjust treatment as necessary. I performed an examination of the patient and discussed their management with the nurse practitioner. I have reviewed the nurse practitioner's note and agree with the documented findings and plan of care.
[2017-03-03] MEDS: LEVOFLOXACIN 500 MG TAB PO SCH (17:41)
[2017-03-03] MEDS: SODIUM CHLORIDE 0.9% 1,000 ML IV SCH (20:06)
[2017-03-03] MEDS: MONTELUKAST 10 MG TAB PO SCH (21:42)
[2017-03-03] MEDS: CALCIUM CARB-VIT D 500MG-200UN 1 EACH TAB PO SCH (21:43)
--- NOTE | 2017-03-03 22:26 | PN ---
DATE OF SERVICE: 03/03/2017 This 67-year-old woman was admitted with COPD, acute exacerbation, with acute purulent tracheobronchitis. She is improving at this time. No chest pain or palpitations. Still on bronchodilators. On exam, alert and oriented x3. Pulse 107, blood pressure 138/66, respiration 16, temperature 97.7, pulse ox 94% on 4 L. HEENT: Conjunctivae normal. NECK: No jugular venous distention. CARDIOVASCULAR SYSTEM: S1, S2 muffled. RESPIRATORY SYSTEM: Breath sounds diminished at the bases. Bilateral scattered rhonchi and crackles. Expiratory wheezing also present. ABDOMEN: Soft, non-tender. LEGS: No edema. No swelling. in NERVOUS SYSTEM: No focal deficit. LABS: WBC 20.9, hemoglobin 12.4; sodium 135. ASSESSMENT: 1. Chronic obstructive pulmonary disease, acute exacerbation, with acute purulent tracheobronchitis with failure of outpatient treatment as well as systemic inflammatory response syndrome, present on admission. 2. Increased white count, possibly secondary to systemic inflammatory response syndrome. 3. Hyponatremia, possibly hypovolemic. 4. Increased AST, ALT; undetermined etiology. 5. Increased random blood sugar. 6. Chronic obstructive pulmonary disease history. 7. Hypertension, essential. 8. History of nicotine dependence. 9. Increased random blood sugar. 10. FULL CODE. RECOMMENDATIONS AND DISCUSSION: In this 67-year-old woman who presented with multiple complex medical issues, we will monitor the patient closely, continue the current medication, continue symptomatic treatment, continue with bronchodilators and continue with steroids. Continue with empiric antibiotics. Follow closely with Dr. Moran. We will cut down the dose of steroids and continue to monitor. Further recommendations to follow. See orders for further details.
[2017-03-04] MEDS: methylPREDNISolone SOD SUCCI 40 MG/ML 1 ML VIAL IV SCH ×3 (00:02→16:06)
[2017-03-04] MEDS: IPRATROPIUM-ALBUTEROL 3 ML NEB INHALATION SCH ×4 (08:00→19:42)
[2017-03-04] MEDS: FORMOTEROL FUMARATE 20 MCG/2 ML NEBU INHALATION SCH ×2 (08:00→19:42)
[2017-03-04] MEDS: BUDESONIDE 1 MG/2 ML NEBU INHALATION SCH ×2 (08:00→19:42)
[2017-03-04] MEDS: guaiFENesin 600 MG TABLET.ER PO SCH ×2 (08:57→20:17)
[2017-03-04] MEDS: HEPARIN SODIUM,PORCINE 5,000 UNIT/ML 1 ML VIAL SQ SCH ×2 (08:58→20:17)
[2017-03-04] MEDS: HYDROCHLOROTHIAZIDE 12.5 MG CAP PO SCH (08:58)
[2017-03-04] MEDS: LORATADINE 10 MG TAB PO SCH (08:59)
[2017-03-04] MEDS: VALSARTAN 160 MG TAB PO SCH (08:59)
[2017-03-04 09:48] LABS: Basophils # (A) 0.1 k/uL (0-0.2); Basophils % (A) 0 %; CH 28.7; CHCM 31.4; Eosinophils % (A) 0 %; HDW 2.03; HGB 12.3 gm/dL (11.4-16.0); Luc # (Auto) 0.12; Luc % (Auto) 1; Lymphocytes # (A) 1.7 k/uL (1.0-4.8); Lymphocytes % (A) 8 %; MCHC 31.6 g/dL (31.0-37.0); MCV 91.7 fL (80.0-100.0); Monocytes # (A) 1.1 k/uL (0-1.0); Monocytes % (A) 5 %; Neutrophils # (A) 19.6 k/uL (1.3-7.7); Neutrophils % (A) 87 %; RBC 4.25 m/uL (3.80-5.40); RDW 14.3 % (11.5-15.5); WBC 22.6 k/uL (3.8-10.6); WBC (Perox) 24.42
[2017-03-04 10:13] LABS: ALT 58 U/L (9-52); AST 24 U/L (14-36); Alkaline Phosphatase 68 U/L (38-126); Anion Gap 12 mmol/L; Blood Urea Nitrogen 26 mg/dL (7-17); Calcium 9.8 mg/dL (8.4-10.2); Carbon Dioxide 26 mmol/L (22-30); Chloride 99 mmol/L (98-107); Glucose 166 mg/dL (74-99); Non-African American GFR(MDRD) >60 (>60 ml/min/1.73 sqM); Potassium 4.4 mmol/L (3.5-5.1); Sodium 137 mmol/L (137-145); Total Bilirubin 0.7 mg/dL (0.2-1.3); Total Protein 6.8 g/dL (6.3-8.2)
[2017-03-04] MEDS: HYDROcodone/APAP 5-325MG 1 EACH TAB PO PRN (12:05)
[2017-03-04] MEDS: MULTIVITAMINS, THERA 1 EACH TAB PO SCH (12:09)
--- NOTE | 2017-03-04 15:27 | PN ---
Patient is admitted with COPD exacerbation. Patient has significant clinical improvement but still quite wheezy and when I examined patient desaturates quickly upon ambulation, although her saturations are at her baseline. Patient remains tachycardic and clinically patient is not at her baseline. REVIEW OF SYSTEMS: CARDIOVASCULAR: No chest pain, no orthopnea, no PND, no palpitations. PULMONARY: As described in HPI. GASTROINTESTINAL: No diarrhea, nausea or vomiting. No abdominal pain. Normoactive bowel sounds. NEUROLOGIC: No headaches, no weakness, no numbness. Medications are reviewed. On physical examination, vital signs temperature 96.9, pulse of 100, respiratory rate of 17, blood pressure is 138/72, saturating at 94% on 3 L of O2 by nasal cannula. LUNG EXAMINATION: Significant expiratory wheezing, decreased air entry into bilateral lung scott. No crackles were appreciated. GENERAL: The patient is alert and oriented x3, not in any acute distress. Well developed, well nourished. HEENT: Pupils are round and equally reacting to light. EOMI. No scleral icterus. No conjunctival pallor. Normocephalic, atraumatic. No pharyngeal erythema. No thyromegaly. CARDIOVASCULAR: S1 and S2 present. No murmurs, rubs, or gallops. ABDOMEN: Soft, nontender, nondistended, normoactive bowel sounds. No palpable organomegaly. MUSCULOSKELETAL: No joint swelling or deformity. EXTREMITIES: No cyanosis, clubbing, or pedal edema. NEUROLOGICAL: Gross neurological examination did not reveal any focal deficits. SKIN: No rashes. LABORATORY DATA: CBC, CMP are abnormal for elevated WBC count of 22,600 and leukocytosis is secondary to systemic steroids which is a bit of exaggerated response which we definitely see in some people. ASSESSMENT AND PLAN: 1. Acute on chronic hypercapnic respiratory failure secondary to chronic obstructive pulmonary disease exacerbation. Continue with systemic steroids and inhalational treatments. 2. Elevated white blood cell count is reactive in nature along with systemic steroids which is contributing to that. 3. Hypovolemic hyponatremia, which improved at this point of time. 4. Nonspecific elevation of AST and ALT, now AST and ALT have come down to normal. 5. Hyperlipidemia. 6. Essential hypertension.
--- NOTE | 2017-03-04 15:31 | PN ---
Melinda Carson is a 67-year-old female who came into hospital with acute COPD exacerbation, cough, congestion. Patient remains short of breath on minimal activity and exertion, remains on supplemental oxygen, still has wheezing, feel congested, overall, however, does feel slightly better as IS is up now. Blood pressure is 138/72, respiratory rate 17, pulse 97, temperature 98, saturation of 94% on 3 L oxygen. HEENT: Atraumatic, normocephalic. Pharynx is clear. Narrow pharyngeal opening is present. No lymphadenopathy is present. Neck veins are prominent. LUNGS: Bilateral inspiratory, expiratory fine wheezing are present, especially during expiratory phase. HEART: Regular rate and rhythm. S1 and S2 audible. ABDOMEN: Soft. No rebound or rigidity. EXTREMITIES: +1 peripheral pulses. NEUROLOGICAL EXAMINATION: Otherwise awake and alert. Labs reviewed. White cell count is 22,000, hemoglobin 12, hematocrit 39, platelets 378,000. Chemistry otherwise is within normal limits. The last chest x-ray performed on 03/03/2017 reviewed and compared with the prior x-ray and no evidence of acute pulmonary disease seen, except some atelectasis on the right base. IMPRESSION: 1. Acute chronic obstructive pulmonary disease exacerbation. 2. Purulent tracheobronchitis. 3. Systemic inflammatory response syndrome like process with leukocytosis. 4. Right lower lobe subsegmental atelectasis, and acute on chronic hypoxic respiratory failure. Plan is to continue antibiotics. Continue breathing treatments, steroids, start tapering steroids slowly. Continue other supportive care. Increase activity as tolerated. Continue deep breathing exercises and incentive spirometry. Will maintain patient on steroids, breathing treatments, antibiotics. Will follow.
[2017-03-04] MEDS: LEVOFLOXACIN 500 MG TAB PO SCH (16:06)
[2017-03-04] MEDS: SODIUM CHLORIDE 0.9% 1,000 ML IV SCH (20:00)
[2017-03-04] MEDS: CALCIUM CARB-VIT D 500MG-200UN 1 EACH TAB PO SCH (20:17)
[2017-03-04] MEDS: MONTELUKAST 10 MG TAB PO SCH (20:17)
[2017-03-05] MEDS: methylPREDNISolone SOD SUCCI 40 MG/ML 1 ML VIAL IV SCH ×4 (00:53→23:55)
[2017-03-05] MEDS: FORMOTEROL FUMARATE 20 MCG/2 ML NEBU INHALATION SCH ×2 (07:21→19:11)
[2017-03-05] MEDS: IPRATROPIUM-ALBUTEROL 3 ML NEB INHALATION SCH ×4 (07:21→19:11)
[2017-03-05] MEDS: BUDESONIDE 1 MG/2 ML NEBU INHALATION SCH ×2 (07:21→19:11)
[2017-03-05 07:56] LABS: Basophils # (A) 0.1 k/uL (0-0.2); Basophils % (A) 0 %; CH 29.1; CHCM 32.1; Eosinophils % (A) 0 %; HCT 37.8 % (34.0-46.0); HDW 2.06; HGB 12.3 gm/dL (11.4-16.0); Luc # (Auto) 0.16; Luc % (Auto) 1; Lymphocytes # (A) 1.6 k/uL (1.0-4.8); Lymphocytes % (A) 7 %; MCH 29.7 pg (25.0-35.0); MCHC 32.6 g/dL (31.0-37.0); MCV 91.1 fL (80.0-100.0); Monocytes % (A) 5 %; Neutrophils # (A) 18.6 k/uL (1.3-7.7); Neutrophils % (A) 87 %; RBC 4.15 m/uL (3.80-5.40); RDW 14.4 % (11.5-15.5); WBC 21.4 k/uL (3.8-10.6); WBC (Perox) 22.65
[2017-03-05 08:31] LABS: ALT 48 U/L (9-52); AST 21 U/L (14-36); Alkaline Phosphatase 66 U/L (38-126); Anion Gap 9 mmol/L; Blood Urea Nitrogen 22 mg/dL (7-17); Calcium 9.7 mg/dL (8.4-10.2); Carbon Dioxide 28 mmol/L (22-30); Chloride 100 mmol/L (98-107); Glucose 120 mg/dL (74-99); Non-African American GFR(MDRD) >60 (>60 ml/min/1.73 sqM); Potassium 4.8 mmol/L (3.5-5.1); Sodium 137 mmol/L (137-145); Total Bilirubin 0.6 mg/dL (0.2-1.3); Total Protein 6.5 g/dL (6.3-8.2)
[2017-03-05] MEDS: HEPARIN SODIUM,PORCINE 5,000 UNIT/ML 1 ML VIAL SQ SCH ×2 (08:48→20:21)
[2017-03-05] MEDS: guaiFENesin 600 MG TABLET.ER PO SCH ×2 (08:49→20:21)
[2017-03-05] MEDS: VALSARTAN 160 MG TAB PO SCH (08:49)
[2017-03-05] MEDS: LORATADINE 10 MG TAB PO SCH (08:49)
[2017-03-05] MEDS: HYDROCHLOROTHIAZIDE 12.5 MG CAP PO SCH (08:49)
[2017-03-05] MEDS: MULTIVITAMINS, THERA 1 EACH TAB PO SCH (11:26)
--- NOTE | 2017-03-05 12:37 | PN ---
Patient is admitted with COPD exacerbation. Patient has significant improvement but not at her baseline yet and wanted to stay one more day. Will continue to watch her one more day and continue with breathing treatments. Possibility of discharge tomorrow. REVIEW OF SYSTEMS: PULMONARY: As described in HPI. CARDIOVASCULAR: No chest pain, no orthopnea, no PND, no palpitations. GASTROINTESTINAL: No diarrhea, nausea or vomiting. No abdominal pain. Normoactive bowel sounds. NEUROLOGIC: No headaches, no weakness, no numbness. Medications were reviewed and no medication changes were made. On physical examination, temperature 98.2, pulse of 94, respiratory rate of 18, blood pressure is 145/66, saturating at 94% on 3 L of O2 by nasal cannula, patient used 2.5 L at home. RESPIRATORY: Mild rhonchus breath sounds, beyond that has wheezing significantly improved. Patient has good air entry into bilateral lung scott. GENERAL: The patient is alert and oriented x3, not in any acute distress. Well developed, well nourished. HEENT: Pupils are round and equally reacting to light. EOMI. No scleral icterus. No conjunctival pallor. Normocephalic, atraumatic. No pharyngeal erythema. No thyromegaly. CARDIOVASCULAR: S1 and S2 present. No murmurs, rubs, or gallops. ABDOMEN: Soft, nontender, nondistended, normoactive bowel sounds. No palpable organomegaly. MUSCULOSKELETAL: No joint swelling or deformity. EXTREMITIES: No cyanosis, clubbing, or pedal edema. NEUROLOGICAL: Gross neurological examination did not reveal any focal deficits. SKIN: No rashes. LABORATORY DATA: CBC, CMP abnormal for elevated WBC count of 21,000. . ASSESSMENT AND PLAN: 1. Acute on chronic hypercapnic respiratory failure secondary to chronic obstructive pulmonary disease exacerbation, continue with system steroids, inhalational treatments, possibility of discharge tomorrow. 2. Elevated blood cell count secondary to systemic steroids. 3. Hypovolemic hyponatremia, improved with IV fluid resuscitation. 4. Resolved nonspecific elevation of AST and ALT and essential hypertension.
[2017-03-05] MEDS: HYDROcodone/APAP 5-325MG 1 EACH TAB PO PRN (12:47)
--- NOTE | 2017-03-05 13:37 | P.PN ---
Subjective This is a pleasant 67-year-old female being evaluated and examined today on the fifth floor. This patient has an extensive history of smoking Shae nicotine dependence. Patient also has chronic hypoxic respiratory failure at baseline, and severe chronic obstructive pulmonary disease, emphysema. Patient is on home oxygen and nebulizer treatments. She has not been feeling well for the last 3 or 4 days and has some increase in her shortness of breath, wheezing cough, congestion and generalized malaise. Her sputum was also purulent. With those problems she presented to the emergency department and was admitted to the hospital. She has been using her nebulizer more freely around the clock at home without any significant relief. Upon examination the patient is resting up in bed on 3 L of oxygen. She states she is starting to feel less wheezy and congested. She is unable to bring up any of her secretions due to the thickness, however she feels this is improving. She also states she is beginning to get her energy back. over this patient is not ready for discharge today possibly tomorrow she would be ready. Objective - Vital Signs Vital signs: Vital Signs Temp 98.2 F 03/04/17 22:45 Pulse 94 03/05/17 11:27 Resp 18 03/05/17 08:00 BP 145/66 03/05/17 07:00 Pulse Ox 94 L 03/05/17 07:24 Intake & Output 03/04/17 03/05/17 03/05/17 18:59 06:59 18:59 Intake Total 640 200 200 Balance 640 200 200 Intake: Intake, IV Titration 160 Amount Sodium Chloride 0.9% 1, 160 000 ml @ 20 mls/hr IV . Q24H [facility] Rx#:[id number] Oral 480 200 200 Other: Voiding Method Toilet Toilet Toilet # Voids 3 1 2 - Exam GENERAL EXAM: Alert, active, comfortable in no apparent distress. HEAD: Normocephalic. EYES: Normal reaction of pupils, equal size. NOSE: Clear with pink turbinates. THROAT: No erythema or exudates. NECK: No masses, no JVD. CHEST: No chest wall deformity. LUNGS: Equal air entry, lung sounds course in nature. She does have faint expiratory wheezes and rhonchi scattered throughout. CVS: S1 and S2 normal with no audible mumurs, regular rhythm. ABDOMEN: No hepatosplenomegaly, normal bowel sounds, no guarding or rigidity. EXTREMITIES: No edema noted, pedal pulses palpable. SKIN: No rashes CENTRAL NERVOUS SYSTEM: No focal deficits, tone is normal in all 4 extremities. - Labs CBC & Chem 7: 03/05/17 07:20 03/05/17 07:20 Labs: Abnormal Lab Results - Last 24 Hours (Table) 03/05/17 03/05/17 Range/Units 07:20 07:20 WBC 21.4 H (3.8-10.6) k/uL Neutrophils # 18.6 H (1.3-7.7) k/uL BUN 22 H (7-17) mg/dL Glucose 120 H (74-99) mg/dL Assessment and Plan Plan: Assessment Systemic inflammatory response syndrome-like process related to her purulent tracheobronchitis Purulent tracheobronchitis Acute exacerbation of severe chronic obstructive pulmonary disease Acute on chronic hypoxic respiratory failure Chronic severe persistent asthma Hypertension Plan This patient could potentially be discharged from a pulmonary standpoint tomorrow. Medications have been reviewed and will be continued as ordered. We will continue with her nebulizer treatments, pulmonary hygiene, and supportive care. Mucinex has been ordered to help with her secretions. Chest xray reviewed. Incentive spirometer and flutter valve initiated and encouraged. We will continue to monitor labs/results and adjust treatment as necessary. I performed an examination of the patient and discussed their management with the nurse practitioner. I have reviewed the nurse practitioner's note and agree with the documented findings and plan of care.
[2017-03-05] MEDS: LEVOFLOXACIN 500 MG TAB PO SCH (17:24)
[2017-03-05] MEDS: SODIUM CHLORIDE 0.9% 1,000 ML IV SCH (17:25)
[2017-03-05] MEDS: CALCIUM CARB-VIT D 500MG-200UN 1 EACH TAB PO SCH (20:21)
[2017-03-05] MEDS: MONTELUKAST 10 MG TAB PO SCH (20:21)
[2017-03-06 07:36] VITALS: BP 133/64; RESP 16; TEMP 97.7
[2017-03-06] MEDS: methylPREDNISolone SOD SUCCI 40 MG/ML 1 ML VIAL IV SCH (08:06)
[2017-03-06] MEDS: HEPARIN SODIUM,PORCINE 5,000 UNIT/ML 1 ML VIAL SQ SCH (08:06)
[2017-03-06] MEDS: VALSARTAN 160 MG TAB PO SCH (08:06)
[2017-03-06] MEDS: guaiFENesin 600 MG TABLET.ER PO SCH (08:07)
[2017-03-06] MEDS: LORATADINE 10 MG TAB PO SCH (08:07)
[2017-03-06] MEDS: HYDROCHLOROTHIAZIDE 12.5 MG CAP PO SCH (08:07)
[2017-03-06] MEDS: FORMOTEROL FUMARATE 20 MCG/2 ML NEBU INHALATION SCH (08:11)
[2017-03-06] MEDS: BUDESONIDE 1 MG/2 ML NEBU INHALATION SCH (08:11)
[2017-03-06] MEDS: IPRATROPIUM-ALBUTEROL 3 ML NEB INHALATION SCH ×2 (08:11→11:52)
[2017-03-06] MEDS: HYDROcodone/APAP 5-325MG 1 EACH TAB PO PRN (08:12)
[2017-03-06 11:54] VITALS: PULSE 88
[2017-03-06] MEDS: MULTIVITAMINS, THERA 1 EACH TAB PO SCH (12:53)
--- NOTE | 2017-03-07 08:53 | DS ---
DATE OF ADMISSION: 02/28/2017 DATE OF DISCHARGE: 03/06/2017 Patient is admitted for chronic obstructive pulmonary disease exacerbation. Patient had significant improvement and is at her baseline. Patient will be discharged today and patient is seen and examined on the day of discharge. Vitals are stable. PHYSICAL EXAMINATION: GENERAL: The patient is alert and oriented x3, not in any acute distress. Well developed, well nourished. HEENT: Pupils are round and equally reacting to light. EOMI. No scleral icterus. No conjunctival pallor. Normocephalic, atraumatic. No pharyngeal erythema. No thyromegaly. CARDIOVASCULAR: S1 and S2 present. No murmurs, rubs, or gallops. PULMONARY: Chest is clear to auscultation, no wheezing or crackles. ABDOMEN: Soft, nontender, nondistended, normoactive bowel sounds. No palpable organomegaly. MUSCULOSKELETAL: No joint swelling or deformity. EXTREMITIES: No cyanosis, clubbing, or pedal edema. NEUROLOGICAL: Gross neurological examination did not reveal any focal deficits. SKIN: No rashes. FINAL DIAGNOSES: 1. Acute on chronic hypercapnic respiratory failure secondary to chronic obstructive pulmonary disease exacerbation. 2. Tracheobronchitis. 3. Hypovolemic hyponatremia, resolved. 4. Elevated white blood cell count, which also resolved which is actually secondary to systemic steroids. Patient will be discharged today. Please refer to my depart summary for further details of medications. Discharge diet regular. Activity as tolerated and patient will follow up with regular activity as tolerated. Patient will follow with her primary care physician in about 3 to 7 days. Follow up with Pulmonology in about a week. I spent greater than 35 minutes in total discharge process.
== END 2017-03-06 14:45 | disposition home or self-care (01) | DRG 190 ==
LOC: EC 13:10 → 5MS5E 17:09
PROVIDERS: ADMIT Internal Medicine; ATTEND Internal Medicine
DX: J44.0 Chronic obstructive pulmonary disease with (acute) lower respiratory infection (principal); J96.21 Acute and chronic respiratory failure with hypoxia; I11.9 Hypertensive heart disease without heart failure; J96.22 Acute and chronic respiratory failure with hypercapnia; E87.1 Hypo-osmolality and hyponatremia; J98.11 Atelectasis; E78.5 Hyperlipidemia, unspecified; J44.1 Chronic obstructive pulmonary disease with (acute) exacerbation; F41.9 Anxiety disorder, unspecified; J45.50 Severe persistent asthma, uncomplicated; T38.0X5A Adverse effect of glucocorticoids and synthetic analogues, initial encounter; Z79.899 Other long term (current) drug therapy; Z87.891 Personal history of nicotine dependence; Z99.81 Dependence on supplemental oxygen
CPT/HCPCS: 36415; 71020; 80053; 81003; 82550; 82553; 83735; 83880; 84484; 85025; 85379; 85610; 85730; 87040; 87502; 93005; 94640; 94667; 94668; 94760; 96365; 96375; 99291

== ENCOUNTER 2017-07-30 18:47 | Emergency (ER) | payer MEDICARE ==
[2017-07-30] MEDS ORDERED: IPRATROPIUM-ALBUTEROL 3 ML NEB INHALATION STA (20:22)
--- NOTE | 2017-07-30 20:28 | ED ---
General Adult HPI - General Chief complaint: Recheck/Abnormal Lab/Rx Stated complaint: Weakness, Diff Breathing Time Seen by Provider: 07/30/17 19:30 Source: patient, family, RN notes reviewed, old records reviewed Mode of arrival: ambulatory Limitations: no limitations - History of Present Illness Initial comments: Chief complaint history of present illness is a 67-year-old female here with family. The patient reports that she's had stuffy nose. Causing mild blurry vision sometimes but not now. Cough is nonproductive. She does have history of COPD. The patient also reports she coughed hard enough last night gagging and vomited once. She says she complains of some mild muffled hearing because her ears feel full. Mild dizziness. Patient denies fever or chest pain. - Related Data Home Medications Medication Instructions Recorded Confirmed Albuterol Inhaler [Ventolin Hfa 1 - 2 puff INHALATION RT-Q6H PRN 02/28/17 Inhaler] Montelukast [Singulair] 10 mg PO HS 02/28/17 07/30/17 Multivitamins, Thera [Multivitamin 1 tab PO DAILY 02/28/17 07/30/17 (formulary)] [place]-3 Fatty Acids/Fish Oil [Fish 1 cap PO DAILY 02/28/17 07/30/17 Oil 1,000 mg Softgel] Valsartan/Hydrochlorothiazide 1 tab PO BID 02/28/17 07/30/17 [Valsartan-Hctz 160-12.5 mg Tab] Albuterol Nebulized [Ventolin 2.5 mg INHALATION RT-TID 07/30/17 07/30/17 Nebulized] Ipratropium-Albuterol Nebulize 3 ml INHALATION RT-BID PRN 07/30/17 07/30/17 [Duoneb 0.5 mg-3 mg/3 ml Soln] Loratadine [Claritin] 10 mg PO DAILY 07/30/17 07/30/17 guaiFENesin [Mucinex] 600 mg PO BID 07/30/17 07/30/17 Previous Rx's Medication Instructions Recorded Budesonide [Pulmicort] 0.5 mg INHALATION RT-BID PRN 30 03/06/17 Days Levofloxacin [Levaquin] 500 mg PO DAILY #9 tab 07/30/17 Allergies Allergy/AdvReac Type Severity Reaction Status Date / Time mold Allergy Unknown Verified 07/30/17 19:41 Review of Systems ROS Statement: Those systems with pertinent positive or pertinent negative responses have been documented in the HPI. Review of systems. Mild nasal congestion no headache. Currently no difficulty with vision. No earache states she feels her ears are full. She feels that she has a postnasal drip from fluid from her sinuses. No chest pain. She coughed hard enough last night to vomit once. No chest pain. She has COPD. No back pain no GI/ problems no neuro deficits other than occasional dizziness with what appears to be an upper respiratory tract infection. All systems are reviewed. Past medical problems significant for COPD and hypertension. The patient had a blood pressure double last week from another hospital because was elevated. Patient reports only surgical history tonsils and bilateral tubal ligation. Family history significant for breast cancer. The patient's a non-drinker quit smoking 12 years ago. She has ALLERGIES to mold and some environmental things. ROS Other: All systems not noted in ROS Statement are negative. Past Medical History Past Medical History: COPD, Hypertension History of Any Multi-Drug Resistant Organisms: None Reported Past Surgical History: No Surgical Hx Reported Past Anesthesia/Blood Transfusion Reactions: No Reported Reaction Past Psychological History: No Psychological Hx Reported Smoking Status: Former smoker Past Alcohol Use History: None Reported Past Drug Use History: None Reported - Past Family History Father Family Medical History: Hypertension General Exam - General Exam Comments Initial Comments: General: The patient is awake and alert, in no distress, and does not appear acutely ill. Has multiple complaints all around being stuffy with a head cold type problem. Mild blurred vision sometimes, runny nose, muffled hearing. Slight dizziness with certain maneuvers. Vital signs temperature 97.0 pulse 92 respiratory rate 22 pulse ox 96% room on 3 L. Blood pressure 187/81. The patient is mildly anxious. Eye: Pupils are equal, round and reactive to light, extra-ocular movements are intact ; there is normal conjunctiva bilaterally. No signs of icterus. No visual acuity changes. Patient wears glasses for reading. Ears, nose, mouth and throat: There are moist mucous membranes and no oral lesions. Complains of a stuffy nose. Ears are clear. TMs normal. Neck: The neck is supple, there is no tenderness, no anterior cervical lymphadenopathy , thyroid not enlarged. No stridor. No carotid bruit. Cardiovascular: There is a regular rate and rhythm. No murmur, rub or gallop is appreciated. Respiratory: Mildly harsh breath sounds. History of COPD., respirations are non-labored, breath sounds are equal. No rales or rhonchi. Gastrointestinal: Soft, non-distended, non-tender abdomen without masses or organomegaly noted. There is no rebound or guarding present. No CVA tenderness. Bowel sounds are unremarkable. Back: There is no tenderness to palpation in the midline. There is no obvious deformity. No rashes noted. Musculoskeletal: Normal ROM, no tenderness, There is no pedal edema. There is no calf tenderness or swelling. Sensation intact. Pulses equal bilaterally 2+. Neurological: No neuro deficits. Skin: Skin is warm and dry and no rashes or lesions are noted. Limitations: no limitations Course Vital Signs 07/30/17 07/30/17 07/30/17 19:07 19:53 20:23 Temperature 97 F L Pulse Rate 92 86 Respiratory 22 20 Rate Blood Pressure 187/81 O2 Sat by Pulse 96 Oximetry 07/30/17 07/30/17 07/30/17 20:32 20:42 21:33 Temperature Pulse Rate 87 86 82 Respiratory 18 18 Rate Blood Pressure 169/77 142/65 O2 Sat by Pulse 96 96 Oximetry Medical Decision Making - Medical Decision Making Medical decision making; the patient had chest x-ray done 2 views and reviewed by radiologist his impression is there is a coarse interstitial density in both lungs. There is a 2 x 1 cm irregular density in the anterior lingula and left lower upper lobe. There is no pleural effusion. There is no heart failure. Bony thorax is intact. Impression pulmonary fibrosis. Normal heart. There is new lingula irregular masslike consolidation compared to old exam. This probably relates to inflammatory process in this relatively short time. Follow- up is recommended to show clearing. As read by Dr. Washington Patient was given an updraft with good results. She will be placed on Levaquin 500 one tablet per day for the next 10 days. Told follow up with her family physician and get a repeat chest x-ray after completion of antibiotics to make sure he irregular density resolves. This was also told to the daughter at bedside. Disposition Clinical Impression: Pneumonia Disposition: HOME SELF-CARE Condition: Fair Instructions: Community Acquired Pneumonia (ED) Additional Instructions: Increase fluids. Take Levaquin daily until completed. Get repeat chest x-ray to make sure that the infiltrate or masslike consolidation has gone away. Prescriptions: Levofloxacin [Levaquin] 500 mg PO DAILY #9 tab Referrals: Allen Santamaria DO [Primary Care Provider] - 1-2 days Time of Disposition: 22:21
--- NOTE | 2017-07-30 21:06 | XR ---
EXAMINATION TYPE: XR chest 2V DATE OF EXAM: 07/30/2017 COMPARISON: 03/03/2017 HISTORY: Cough and congestion TECHNIQUE: Frontal and lateral views of the chest are obtained. FINDINGS: There is coarse interstitial density in both lungs. There is a 2 x 1 cm irregular density in the anterior lingula left upper lobe. There is no pleural effusion. There is no heart failure. Bon y thorax is intact. IMPRESSION: Pulmonary fibrosis. Normal heart. There is new lingula irregular masslike consolidation compared to old exam. This probably relates to inflammatory process in this relatively short time. Fo llow-up is recommended to show clearing.
[2017-07-30] MEDS ORDERED: LEVOFLOXACIN 500 MG TAB PO STA (22:16)
[2017-07-30 22:36] VITALS: BP 165/77; PULSE 88; RESP 20; TEMP 98.2
== END 2017-07-30 22:36 | disposition home or self-care (01) ==
LOC: EC 18:47
DX: J18.9 Pneumonia, unspecified organism (principal); R42 Dizziness and giddiness; H53.8 Other visual disturbances; J44.9 Chronic obstructive pulmonary disease, unspecified; I10 Essential (primary) hypertension; Z87.891 Personal history of nicotine dependence; Z79.899 Other long term (current) drug therapy; Z91.09 Other allergy status, other than to drugs and biological substances
CPT/HCPCS: 71020; 94640; 99285

== ENCOUNTER 2017-12-19 21:13 | Inpatient (IN) | payer MEDICARE ==
--- NOTE | 2017-12-19 21:43 | ED ---
General Adult HPI - General Chief complaint: Shortness of Breath Stated complaint: SOB Time Seen by Provider: 12/19/17 21:15 Source: patient, RN notes reviewed Mode of arrival: ambulatory Limitations: no limitations - History of Present Illness Initial comments: This is a 67-year-old female who presents emergency Department with a past medical history significant for COPD. Patient states today she went to her doctor's because of a sore throat and upper back pain. Patient states he gave her some medicine for the sore throat but since then she's become more short of breath. Patient states she's taken many treatments and it does not seem to help. Patient denies any chest pain or palpitations. Patient denies any fever chills or cough. Patient states the pain is in the upper back and seems to be worse with shortness of breath. Patient denies any lightheadedness dizziness or near syncopal episode. Patient denies any abdominal pain patient denies nausea vomiting diarrhea - Related Data Home Medications Medication Instructions Recorded Confirmed Albuterol Inhaler [Ventolin Hfa 1 - 2 puff INHALATION RT-Q6H PRN 02/28/17 Inhaler] Montelukast [Singulair] 10 mg PO HS 02/28/17 07/30/17 Multivitamins, Thera [Multivitamin 1 tab PO DAILY 02/28/17 07/30/17 (formulary)] [place]-3 Fatty Acids/Fish Oil [Fish 1 cap PO DAILY 02/28/17 07/30/17 Oil 1,000 mg Softgel] Valsartan/Hydrochlorothiazide 1 tab PO BID 02/28/17 07/30/17 [Valsartan-Hctz 160-12.5 mg Tab] Albuterol Nebulized [Ventolin 2.5 mg INHALATION RT-TID 07/30/17 07/30/17 Nebulized] Ipratropium-Albuterol Nebulize 3 ml INHALATION RT-BID PRN 07/30/17 07/30/17 [Duoneb 0.5 mg-3 mg/3 ml Soln] Loratadine [Claritin] 10 mg PO DAILY 07/30/17 07/30/17 guaiFENesin [Mucinex] 600 mg PO BID 07/30/17 07/30/17 Previous Rx's Medication Instructions Recorded Budesonide [Pulmicort] 0.5 mg INHALATION RT-BID PRN 30 03/06/17 Days ampul.neb Levofloxacin [Levaquin] 500 mg PO DAILY #9 tab 07/30/17 Allergies Allergy/AdvReac Type Severity Reaction Status Date / Time mold Allergy Unknown Verified 12/19/17 21:28 Review of Systems ROS Statement: Those systems with pertinent positive or pertinent negative responses have been documented in the HPI. ROS Other: All systems not noted in ROS Statement are negative. Past Medical History Past Medical History: COPD, Hypertension History of Any Multi-Drug Resistant Organisms: None Reported Past Surgical History: Tonsillectomy Past Anesthesia/Blood Transfusion Reactions: No Reported Reaction Past Psychological History: No Psychological Hx Reported Smoking Status: Former smoker Past Alcohol Use History: None Reported Past Drug Use History: None Reported - Past Family History Father Family Medical History: Hypertension General Exam - General Exam Comments Initial Comments: GENERAL: Patient is well-developed and well-nourished. Patient is nontoxic and well- hydrated and is in mild distress. ENT: Neck is soft and supple. No significant lymphadenopathy is noted. Oropharynx is clear. Moist mucous membranes. Neck has full range of motion without eliciting any pain. EYES: The sclera were anicteric and conjunctiva were pink and moist. Extraocular movements were intact and pupils were equal round and reactive to light. Eyelids were unremarkable. PULMONARY: Unlabored respirations. Good breath sounds bilaterally. No audible rales rhonchi or wheezing was noted. CARDIOVASCULAR: There is a regular rate and rhythm without any murmurs gallops or rubs. ABDOMEN: Soft and nontender with normal bowel sounds. No palpable organomegaly was noted. There is no palpable pulsatile mass. SKIN: Skin is clear with no lesions or rashes and otherwise unremarkable. NEUROLOGIC: Patient is alert and oriented x3. Cranial nerves II through XII are grossly intact. Motor and sensory are also intact. Normal speech, volume and content. Symmetrical smile. MUSCULOSKELETAL: Normal extremities with adequate strength and full range of motion. No lower extremity swelling or edema. No calf tenderness. LYMPHATICS: No significant lymphadenopathy is noted PSYCHIATRIC: Normal psychiatric evaluation. Normal interpersonal interactions appears functionally intact in deals appropriately with others. No signs of depression. No signs of anxiety. Limitations: no limitations Course Vital Signs 12/19/17 12/19/17 12/19/17 21:25 21:51 23:11 Temperature 97.6 F 98.8 F 97.8 F Pulse Rate 95 87 90 Respiratory 26 H 22 18 Rate Blood Pressure 189/87 172/81 160/72 O2 Sat by Pulse 95 96 98 Oximetry Medical Decision Making - Medical Decision Making patient was on 3 L in the emergency department oxygenating at 96%. Patient's baseline O2 is 2 and half to 3 L EKG shows normal sinus rhythm at 91 bpm PA interval is on a 44 QRS is 74 Q-T intervals 346 QTC is 425. Patient's EKG shows no ST segment elevation or depression or T wave abnormalities are noted Chest x-ray shows no acute abnormality. Patient continued to sat at 96% the whole time while she was in the emergency department. Patient's sodium was 120 psychiatric 500 mL bolus. I spoke with Dr. Armstrong he agreed to admit the patient admitted the patient wrote admitting orders - Lab Data Result diagrams: 12/19/17 21:40 12/19/17 21:40 Lab Results 12/19/17 12/19/17 12/19/17 Range/Units 21:40 21:40 21:40 WBC 11.5 H (3.8-10.6) k/uL RBC 4.13 (3.80-5.40) m/uL Hgb 11.8 (11.4-16.0) gm/dL Hct 35.6 (34.0-46.0) % MCV 86.2 (80.0-100.0) fL MCH 28.6 (25.0-35.0) pg MCHC 33.2 (31.0-37.0) g/dL RDW 13.0 (11.5-15.5) % Plt Count 221 (150-450) k/uL Neutrophils % 88 % Lymphocytes % 8 % Monocytes % 3 % Eosinophils % 1 % Basophils % 0 % Neutrophils # 10.1 H (1.3-7.7) k/uL Lymphocytes # 0.9 L (1.0-4.8) k/uL Monocytes # 0.3 (0-1.0) k/uL Eosinophils # 0.1 (0-0.7) k/uL Basophils # 0.0 (0-0.2) k/uL PT (9.0-12.0) sec INR (<1.2) APTT (22.0-30.0) sec D-Dimer (<0.60) mg/L FEU Sodium 120 L* (137-145) mmol/L Potassium 4.1 (3.5-5.1) mmol/L Chloride 83 L (98-107) mmol/L Carbon Dioxide 24 (22-30) mmol/L Anion Gap 13 mmol/L BUN 10 (7-17) mg/dL Creatinine 0.50 L (0.52-1.04) mg/dL Est GFR (MDRD) Af Amer >60 (>60 ml/min/1.73 sqM) Est GFR (MDRD) Non-Af >60 (>60 ml/min/1.73 sqM) Glucose 117 H (74-99) mg/dL Calcium 9.5 (8.4-10.2) mg/dL Magnesium 1.5 L (1.6-2.3) mg/dL Total Bilirubin 0.5 (0.2-1.3) mg/dL AST 27 (14-36) U/L ALT 36 (9-52) U/L Alkaline Phosphatase 75 (38-126) U/L Total Creatine Kinase 50 (30-135) U/L CK-MB (CK-2) 1.8 (0.0-2.4) ng/mL CK-MB (CK-2) Rel Index 3.6 Troponin I <0.012 (0.000-0.034) ng/mL NT-Pro-B Natriuret Pep pg/mL Total Protein 6.8 (6.3-8.2) g/dL Albumin 4.5 (3.5-5.0) g/dL 12/19/17 12/19/17 Range/Units 21:40 21:40 WBC (3.8-10.6) k/uL RBC (3.80-5.40) m/uL Hgb (11.4-16.0) gm/dL Hct (34.0-46.0) % MCV (80.0-100.0) fL MCH (25.0-35.0) pg MCHC (31.0-37.0) g/dL RDW (11.5-15.5) % Plt Count (150-450) k/uL Neutrophils % % Lymphocytes % % Monocytes % % Eosinophils % % Basophils % % Neutrophils # (1.3-7.7) k/uL Lymphocytes # (1.0-4.8) k/uL Monocytes # (0-1.0) k/uL Eosinophils # (0-0.7) k/uL Basophils # (0-0.2) k/uL PT 10.1 (9.0-12.0) sec INR 1.0 (<1.2) APTT 23.1 (22.0-30.0) sec D-Dimer 0.27 (<0.60) mg/L FEU Sodium (137-145) mmol/L Potassium (3.5-5.1) mmol/L Chloride (98-107) mmol/L Carbon Dioxide (22-30) mmol/L Anion Gap mmol/L BUN (7-17) mg/dL Creatinine (0.52-1.04) mg/dL Est GFR (MDRD) Af Amer (>60 ml/min/1.73 sqM) Est GFR (MDRD) Non-Af (>60 ml/min/1.73 sqM) Glucose (74-99) mg/dL Calcium (8.4-10.2) mg/dL Magnesium (1.6-2.3) mg/dL Total Bilirubin (0.2-1.3) mg/dL AST (14-36) U/L ALT (9-52) U/L Alkaline Phosphatase (38-126) U/L Total Creatine Kinase (30-135) U/L CK-MB (CK-2) (0.0-2.4) ng/mL CK-MB (CK-2) Rel Index Troponin I (0.000-0.034) ng/mL NT-Pro-B Natriuret Pep 139 pg/mL Total Protein (6.3-8.2) g/dL Albumin (3.5-5.0) g/dL Disposition Clinical Impression: Dyspnea, Hyponatremia Disposition: ADMITTED IP TO THIS HOSP Referrals: Lyndon Mahan MD [Primary Care Provider] - 1-2 days Time of Disposition: 23:24
--- NOTE | 2017-12-19 22:01 | XR ---
EXAMINATION TYPE: XR chest 2V DATE OF EXAM: 12/19/2017 COMPARISON: NONE HISTORY: Chest pain TECHNIQUE: Frontal and lateral views of the chest are obtained. FINDINGS: There is no focal air space opacity, pleural effusion, or pneumothorax seen. Several stran ds of atelectasis are noted in the right lower lobe. The cardiac silhouette size is within normal herring its. The osseous structures are intact. IMPRESSION: No acute cardiopulmonary process.
[2017-12-19 22:13] LABS: ALT 36 U/L (9-52); AST 27 U/L (14-36); Albumin 4.5 g/dL (3.5-5.0); Alkaline Phosphatase 75 U/L (38-126); Anion Gap 13 mmol/L; Blood Urea Nitrogen 10 mg/dL (7-17); Calcium 9.5 mg/dL (8.4-10.2); Carbon Dioxide 24 mmol/L (22-30); Chloride 83 mmol/L (98-107); Glucose 117 mg/dL (74-99); Magnesium 1.5 mg/dL (1.6-2.3); Potassium 4.1 mmol/L (3.5-5.1); Total Bilirubin 0.5 mg/dL (0.2-1.3); Total Protein 6.8 g/dL (6.3-8.2)
[2017-12-19 22:16] LABS: Creatine Kinase 50 U/L (30-135)
[2017-12-19 22:23] LABS: D-Dimer 0.27 mg/L FEU (<0.60); Partial Thromboplastin Time 23.1 sec (22.0-30.0); Prothrombin Time 10.1 sec (9.0-12.0)
[2017-12-19] MEDS ORDERED: MORPHINE SULFATE 4 MG/ML SYRINGE IVP ONE (22:28)
[2017-12-19 22:29] LABS: Creatine Kinase MB 1.8 ng/mL (0.0-2.4); Troponin I <0.012 ng/mL (0.000-0.034)
[2017-12-19 22:30] LABS: Sodium 120 mmol/L (137-145)
[2017-12-19] MEDS ORDERED: SODIUM CHLORIDE 0.9% 500 ML IV ONE (22:31)
[2017-12-19 22:48] LABS: Basophils % (A) 0 %; Eosinophils # (A) 0.1 k/uL (0-0.7); Eosinophils % (A) 1 %; HCT 35.6 % (34.0-46.0); HGB 11.8 gm/dL (11.4-16.0); Lymphocytes # (A) 0.9 k/uL (1.0-4.8); Lymphocytes % (A) 8 %; MCH 28.6 pg (25.0-35.0); MCHC 33.2 g/dL (31.0-37.0); MCV 86.2 fL (80.0-100.0); Mean Platelet Volume 8.6; Monocytes # (A) 0.3 k/uL (0-1.0); Monocytes % (A) 3 %; Neutrophils # (A) 10.1 k/uL (1.3-7.7); Neutrophils % (A) 88 %; Platelet Count 221 k/uL (150-450); RBC 4.13 m/uL (3.80-5.40); WBC 11.5 k/uL (3.8-10.6)
[2017-12-19] MEDS ORDERED: SODIUM CHLORIDE 0.9% 1,000 ML IV ONE (23:24)
[2017-12-20 07:42] LABS: ALT 32 U/L (9-52); AST 21 U/L (14-36); Albumin 4.1 g/dL (3.5-5.0); Alkaline Phosphatase 72 U/L (38-126); Anion Gap 11 mmol/L; Blood Urea Nitrogen 9 mg/dL (7-17); Calcium 9.6 mg/dL (8.4-10.2); Carbon Dioxide 27 mmol/L (22-30); Chloride 92 mmol/L (98-107); Glucose 129 mg/dL (74-99); Potassium 4.5 mmol/L (3.5-5.1); Sodium 130 mmol/L (137-145); Total Bilirubin 0.5 mg/dL (0.2-1.3); Total Protein 6.3 g/dL (6.3-8.2)
[2017-12-20 07:57] LABS: Basophils % (A) 0 %; Eosinophils % (A) 0 %; HCT 35.5 % (34.0-46.0); HGB 11.8 gm/dL (11.4-16.0); Lymphocytes # (A) 0.6 k/uL (1.0-4.8); Lymphocytes % (A) 9 %; MCH 29.4 pg (25.0-35.0); MCHC 33.1 g/dL (31.0-37.0); MCV 88.7 fL (80.0-100.0); Mean Platelet Volume 8.6; Monocytes # (A) 0.3 k/uL (0-1.0); Monocytes % (A) 4 %; Neutrophils # (A) 6.2 k/uL (1.3-7.7); Neutrophils % (A) 87 %; Platelet Count 249 k/uL (150-450); RDW 13.2 % (11.5-15.5); WBC 7.1 k/uL (3.8-10.6)
[2017-12-20] MEDS: IPRATROPIUM-ALBUTEROL 3 ML NEB INHALATION SCH ×4 (08:44→23:56)
[2017-12-20] MEDS ORDERED: VALSARTAN PO SCH (09:45)
[2017-12-20] MEDS ORDERED: LORATADINE 10 MG TAB PO SCH (09:45)
[2017-12-20] MEDS ORDERED: guaiFENesin 600 MG TABLET.ER PO SCH (09:45)
[2017-12-20] MEDS ORDERED: HYDROCHLOROTHIAZIDE PO SCH (09:45)
[2017-12-20] MEDS ORDERED: [UNRECOGNIZED DRUG - OTHER] PO SCH (09:45)
[2017-12-20] MEDS ORDERED: HYDROCHLOROTHIAZIDE 12.5 MG CAP PO SCH (10:00)
[2017-12-20] MEDS: VALSARTAN 160 MG TAB PO SCH ×2 (10:43→20:36)
[2017-12-20] MEDS: MULTIVITAMINS, THERA 1 EACH TAB PO SCH (12:32)
[2017-12-20] MEDS: ACETAMINOPHEN TAB 325 MG TAB PO PRN (12:32)
[2017-12-20] MEDS: ASCORBIC ACID 500 MG TAB PO SCH (12:32)
[2017-12-20] MEDS ORDERED: FLUCONAZOLE 100 MG TAB PO ONE (17:18)
[2017-12-20] MEDS ORDERED: CALCIUM CARBONATE 500 MG CHEWABLE PO PRN (17:21)
[2017-12-20] MEDS ORDERED: LORazepam 0.5 MG TAB PO PRN (17:21)
[2017-12-20] MEDS ORDERED: NALOXONE 0.4 MG/ML 1 ML VIAL IV PRN (17:21)
[2017-12-20] MEDS ORDERED: MELATONIN 3 MG TABLET PO PRN (17:21)
[2017-12-20] MEDS ORDERED: ONDANSETRON 4 MG/2 ML VIAL IVP PRN (17:21)
[2017-12-20] MEDS ORDERED: LACTULOSE 20 GM/30 ML CUP PO PRN (17:21)
[2017-12-20] MEDS: BUDESONIDE 1 MG/2 ML NEBU INHALATION SCH (19:14)
[2017-12-20] MEDS ORDERED: BUDESONIDE 0.5 MG/2 ML NEBU INHALATION SCH (20:00)
[2017-12-20] MEDS: methylPREDNISolone SOD SUCCI 40 MG/ML 1 ML VIAL IV SCH (20:34)
[2017-12-20] MEDS ORDERED: MONTELUKAST 10 MG TAB PO SCH (21:00)
--- NOTE | 2017-12-20 21:03 | HP ---
HISTORY AND PHYSICAL DATE OF ADMISSION: December 19, 2017. PRESENTING COMPLAINT: Short of breath. HISTORY OF PRESENTING COMPLAINT: This is a very pleasant 67-year-old patient who follows with Dr. Jaime Mahan out of [facility]. Patient has known COPD and on home oxygen 3 L. The patient presents with 2 day started up with a sore throat. Slight cough. Became more and more short of breath, wheezing. Denied obvious fever. Pain in the throat, presented to the ER. Admitted with COPD exacerbation feeling a bit better after getting breathing treatments. REVIEW OF SYSTEMS: Constitutional: Tired. HEENT as above. Respiratory as above. Cardiovascular none. Gastrointestinal none. Genitourinary: Urinary incontinence. Dermatological and hematologic, lymphatic none. Psychiatry none. Neurological none. Musculoskeletal: Pain in different joints. PAST MEDICAL HISTORY: COPD on home oxygen, hypertension. PAST SURGICAL HISTORY: Tonsillectomy. SOCIAL HISTORY: The patient smoked for close to 42 years about 2 1/2 packs a day, stopped in 2000. Lives by herself. No alcohol history. FAMILY HISTORY: Of hypertension. HOME MEDICATIONS: 1. Vitamin C 2000 mg a day. 2. Citracal petite 1 tab p.o. daily. 3. Mucinex 600 mg p.o. daily. 4. Fish oil 1 capsule p.o. daily. 5. Multivitamin 1 tab p.o. daily. 6. Claritin 10 mg p.o. daily. 7. DuoNeb t.i.d. 8. Pulmicort 0.5 b.i.d. p.r.n. 9. Valsartan hydrochlorothiazide 160/12.5 b.i.d. 10.Singulair 10 mg q.h.s. 11.Ventolin HFA 1 or 2 puffs q.6h p.r.n. ALLERGIES: MOLD AND PERFUME. PHYSICAL EXAMINATION: Vital signs on presentation temperature 97.6, pulse 95, respiration 26, blood pressure 189/87, pulse ox 95% on 3 L: General appearance: Average built, sitting up, tired appearing. Eyes pupils equal. Conjunctivae normal. HEENT: External appearance of nose and ears normal. Oral cavity showing white patches in the pharynx and the uvula. Neck JVD not raised. Mass not palpable. Respiratory effort increased. Lungs decreased breath sounds. Prolonged expiration. Some expiratory crackles. Cardiovascular 1st and second sounds. No edema. ABDOMEN: Soft, nontender. Liver and spleen not palpable. No mass palpable. Lymphatics: No lymph nodes palpable in the neck and axillae. Psychiatry alert and oriented times three. Mood and affect normal. Musculoskeletal: Evidence of osteoarthritis. Especially in the hands. INVESTIGATIONS: White count 11.5, hemoglobin 11.8, sodium 120, potassium 4.1, chloride 83, BUN 10, creatinine 0.5, magnesium 1.5. Chest x-ray shows some maybe chronic changes. ASSESSMENT: 1. Acute chronic obstructive pulmonary disease exacerbation in an ex-smoker. 2. Chronic hypoxic respiratory failure secondary to chronic obstructive pulmonary disease. 3. Severe hyponatremia likely hypoosmolar, probably from decreased solute intake. 4. Chronic urinary stress incontinence. 5. Primary osteoarthritis multiple joints bilateral. 6. Pharyngeal candidiasis secondary to steroid use. PLAN: Patient to be put on q.4 nebulized bronchodilators, nebulized on IV steroids. The patient told to use warm water and salt gargle. For hyponatremia, we will put the patient on fluid restriction of 1500 mL a day and avoid thin liquids. Will also add some salt tablets. Other home medications to be resumed. Care was discussed with the patient and family at the bedside. Questions were answered. Copy to Dr. Jaime Mahan in [facility]. MMODL / IJN: [id number] /
[2017-12-21] MEDS: methylPREDNISolone SOD SUCCI 40 MG/ML 1 ML VIAL IV SCH ×2 (01:34→10:46)
[2017-12-21] MEDS: IPRATROPIUM-ALBUTEROL 3 ML NEB INHALATION SCH ×6 (03:37→19:33)
[2017-12-21 07:17] LABS: Anion Gap 10 mmol/L; Blood Urea Nitrogen 9 mg/dL (7-17); Calcium 9.8 mg/dL (8.4-10.2); Carbon Dioxide 28 mmol/L (22-30); Chloride 99 mmol/L (98-107); Glucose 166 mg/dL (74-99); Potassium 4.8 mmol/L (3.5-5.1); Sodium 137 mmol/L (137-145)
[2017-12-21] MEDS: BUDESONIDE 1 MG/2 ML NEBU INHALATION SCH ×2 (07:26→19:33)
[2017-12-21] MEDS: ACETAMINOPHEN TAB 325 MG TAB PO PRN (07:29)
[2017-12-21] MEDS ORDERED: FLUCONAZOLE 100 MG TAB PO SCH (09:00)
[2017-12-21] MEDS ORDERED: ENOXAPARIN 40 MG/0.4 ML SYRINGE SQ SCH (09:00)
[2017-12-21] MEDS: ASCORBIC ACID 500 MG TAB PO SCH (10:51)
[2017-12-21] MEDS: VALSARTAN 160 MG TAB PO SCH (10:51)
[2017-12-21] MEDS: MULTIVITAMINS, THERA 1 EACH TAB PO SCH (13:48)
[2017-12-21 15:26] VITALS: RESP 18
[2017-12-21 15:35] VITALS: BP 163/90; TEMP 97.5
[2017-12-21 16:01] VITALS: PULSE 113
[2017-12-22] MEDS: IPRATROPIUM-ALBUTEROL 3 ML NEB INHALATION SCH (02:51)
--- NOTE | 2017-12-22 07:46 | DS ---
DISCHARGE SUMMARY DATE OF ADMISSION: December 19, 2017. DATE OF DISCHARGE: December 21, 2017. FINAL DIAGNOSES: 1. Acute chronic obstructive pulmonary disease exacerbation in an ex-smoker. 2. Chronic hypoxic respiratory failure secondary to chronic obstructive pulmonary disease on 2 L oxygen at home. 3. Severe hyponatremia likely hypoosmolar from decreased solute intake. 4. Chronic urinary stress incontinence. 5. Primary osteoarthritis multiple joints bilateral. 6. Oropharyngeal candidiasis secondary to steroid use. HOSPITAL COURSE: This is a very pleasant lady of Dr. Jaime Mahan, presented with COPD exacerbation, sore throat, responded well to Diflucan, breathing treatments, steroids, doing much better at the time of discharge. Care was discussed with the patient in detail. Questions were answered. EXAMINATION: Lungs improved air entry. Cardiovascular 1st and 2nd sounds normal. Psych AO x3. Oral cavity white spots have resolved. Sodium did come up from 120 to 137 with fluid restriction, salt tablets. DISCHARGE MEDICATIONS: 1. Ventolin HFA 1-2 puffs q.6h p.r.n. 2. Singulair 10 mg q.h.s. 3. Multivitamin 1 tab p.o. daily. 4. Fish oil 1 capsule p.o. daily. 5. Valsartan hydrochlorothiazide 160/12.5 one tab p.o. b.i.d. 6. Pulmicort 0.5 b.i.d. p.r.n. 7. DuoNeb t.i.d. 8. Mucinex 600 mg daily. 9. Vitamin C 2000 mg p.o. daily. 10.Citracal petites 1 tab p.o. daily. 11.Diflucan 100 mg p.o. daily for 7 days. 12.Melatonin 3 mg q.h.s. p.r.n. 13.Prednisone taper. FOLLOWUP: With Dr. Jaime Mahan on December 24, 2017, BMP in 3-5 days. Discussion and discharge planning more than 35 minutes. MMODL / IJN: [id number] /
== END 2017-12-22 02:58 | disposition home or self-care (01) | DRG 191 ==
LOC: SUPCPDRO 21:13 → EC 21:13 → 3SUR 23:24
PROVIDERS: ADMIT Hospitalist; ATTEND Hospitalist
DX: J44.1 Chronic obstructive pulmonary disease with (acute) exacerbation (principal); B37.0 Candidal stomatitis; B37.89 Other sites of candidiasis; J96.11 Chronic respiratory failure with hypoxia; E87.1 Hypo-osmolality and hyponatremia; Z99.81 Dependence on supplemental oxygen; I10 Essential (primary) hypertension; M15.9 Polyosteoarthritis, unspecified; N39.3 Stress incontinence (female) (male); T38.0X5A Adverse effect of glucocorticoids and synthetic analogues, initial encounter; Z79.899 Other long term (current) drug therapy; Z87.891 Personal history of nicotine dependence; Z91.048 Other nonmedicinal substance allergy status; Z82.49 Family history of ischemic heart disease and other diseases of the circulatory system; Y92.009 Unspecified place in unspecified non-institutional (private) residence as the place of occurrence of the external cause
CPT/HCPCS: 36415; 71046; 80048; 80053; 82550; 82553; 83735; 83880; 84484; 85025; 85379; 85610; 85730; 87040; 87081; 87430; 87502; 93005; 94640; 96361; 96374; 99285

== ENCOUNTER 2022-03-18 19:12 | Emergency (ER) | payer MEDICARE ==
[2022-03-18] MEDS ORDERED: SODIUM CHLORIDE 0.9% 500 ML 500 ML IV STA (21:50)
[2022-03-18] MEDS ORDERED: SODIUM CHLORIDE 0.9% 1,000 ML IV SCH (22:00)
--- NOTE | 2022-03-18 22:08 | XR ---
EXAMINATION TYPE: XR chest 1V portable DATE OF EXAM: 03/18/2022 COMPARISON: 12/19/2017 HISTORY: Difficulty breathing TECHNIQUE: FINDINGS: Heart is normal. There is coarsening of interstitial markings. No heart failure seen. There are no hi lar masses. No pleural effusion. Bony thorax is intact. IMPRESSION: Pulmonary fibrotic changes. No change compared to old exam.
[2022-03-18 22:26] LABS: Potassium 4.8 mmol/L (3.5-5.1)
[2022-03-18 22:27] LABS: ALT 28 U/L (4-34); AST 29 U/L (14-36); African American GFR (CKD) >90 (>60 ml/min/1.73 sqM); Albumin 4.1 g/dL (3.5-5.0); Alkaline Phosphatase 64 U/L (38-126); Anion Gap 9 mmol/L; Blood Urea Nitrogen 21 mg/dL (7-17); Carbon Dioxide 29 mmol/L (22-30); Chloride 92 mmol/L (98-107); Glucose 107 mg/dL (74-99); Magnesium 1.7 mg/dL (1.6-2.3); Non-African American GFR(CKD) 87 (>60 ml/min/1.73 sqM); Sodium 130 mmol/L (137-145); Total Bilirubin 0.5 mg/dL (0.2-1.3); Total Protein 6.9 g/dL (6.3-8.2)
[2022-03-18 22:29] LABS: INR 0.9 (<1.2); Prothrombin Time 9.8 sec (9.0-12.0)
--- NOTE | 2022-03-18 22:30 | ED ---
Arrhythmia/Palpitations HPI - General Chief Complaint: Arrhythmia/Palpitations Stated Complaint: High HR Time Seen by Provider: 03/18/22 21:48 Source: patient, RN notes reviewed, old records reviewed Mode of arrival: wheelchair - History of Present Illness Initial Comments: This is a 72-year-old female who is presented today for evaluation regards to feels like her heart is racing. Patient has had history of elevated heart rate in the past but none diagnosed. Evaluation here in the ER heart is improved improved, patient states her initial heart rate was in the 170s at home. Patient denied any chest pain at the time just elevated heart rate and lightheadedness. Patient is no travel history sick contacts no significant recent medical changes. MD Complaint: rapid heart beat, "heart racing", palpitations -: hour(s) Context: occurred during rest Arrhythmia History: other (unknown) Associated Symptoms: shortness of breath Treatments Prior to Arrival: other (none) - Related Data Home Medications Medication Instructions Recorded Confirmed Montelukast [Singulair] 10 mg PO HS 02/28/17 03/18/22 Multivitamins, Thera [Multivitamin 2 tab PO DAILY 02/28/17 03/18/22 (formulary)] [place]-3 Fatty Acids/Fish Oil [Fish 1 cap PO DAILY 02/28/17 03/18/22 Oil 1,000 mg Softgel] Ascorbic Acid [Vitamin C] 2,000 mg PO DAILY 12/20/17 03/18/22 Albuterol Inhaler [Ventolin Hfa 2 puff INHALATION RT-QID PRN 03/18/22 03/18/22 Inhaler] Albuterol Nebulized [Ventolin 2.5 mg INHALATION RT-QID 03/18/22 03/18/22 Nebulized] Budesonide [Pulmicort] 1 mg INHALATION RT-BID 03/18/22 03/18/22 C,E,Zinc,Copper 11/Bayev9j/Lut 1 cap PO DAILY 03/18/22 03/18/22 [Ocuvite Adult 50 Plus Softgel] Dylan/D3/Mag11/Zinc/Mulling Machine Operator/Anibal/Bor 1 tab PO DAILY 03/18/22 03/18/22 [Caltrate 600+D Plus Tablet] Cholecalciferol [Vitamin D3 (25 100 mcg PO DAILY 03/18/22 03/18/22 Mcg = 1000 Iu)] Ensure 1 can PO W/BRKFST 03/18/22 03/18/22 Fexofenadine HCl [Jeny Allergy] 180 mg PO DAILY 03/18/22 03/18/22 Fluticasone Nasal [place] [Flonase 1 spray EA NOSTRIL BID 03/18/22 03/18/22 Nasal [place]] Ipratropium [place] 0.06%Nasal 2 spray EA NOSTRIL BID 03/18/22 03/18/22 [Atrovent Nasal 0.06%] Telmisartan/Hydrochlorothiazid 1 tab PO BID 03/18/22 03/18/22 [Telmisartan-Hctz 40-12.5 mg Tb] Allergies Allergy/AdvReac Type Severity Reaction Status Date / Time mold Allergy Unknown Verified 03/18/22 22:56 perfume Allergy Unknown Verified 03/18/22 22:56 Review of Systems ROS Statement: Those systems with pertinent positive or pertinent negative responses have been documented in the HPI. ROS Other: All systems not noted in ROS Statement are negative. Past Medical History Past Medical History: COPD, Hypertension Additional Past Medical History / Comment(s): o2 at home History of Any Multi-Drug Resistant Organisms: None Reported Past Surgical History: Tonsillectomy Past Anesthesia/Blood Transfusion Reactions: No Reported Reaction Past Psychological History: No Psychological Hx Reported Past Alcohol Use History: None Reported Past Drug Use History: None Reported - Past Family History Father Family Medical History: Hypertension General Exam General appearance: alert, in no apparent distress Head exam: Present: atraumatic, normocephalic, normal inspection Eye exam: Present: normal appearance, PERRL, EOMI. Absent: scleral icterus, conjunctival injection, periorbital swelling ENT exam: Present: normal exam, mucous membranes moist Neck exam: Present: normal inspection. Absent: tenderness, meningismus, lymphadenopathy Respiratory exam: Present: normal lung sounds bilaterally. Absent: respiratory distress, wheezes, rales, rhonchi, stridor Cardiovascular Exam: Present: normal rhythm, tachycardia, normal heart sounds. Absent: systolic murmur, diastolic murmur, rubs, gallop, clicks GI/Abdominal exam: Present: soft, normal bowel sounds. Absent: distended, tenderness, guarding, rebound, rigid Extremities exam: Present: normal inspection, full ROM, normal capillary refill. Absent: tenderness, pedal edema, joint swelling, calf tenderness Back exam: Present: normal inspection Neurological exam: Present: alert, oriented X3, CN II-XII intact Psychiatric exam: Present: normal affect, normal mood Skin exam: Present: warm, dry, intact, normal color. Absent: rash Course Vital Signs 03/18/22 03/18/22 03/18/22 21:19 22:24 23:00 Temperature 98.1 F 98.3 F Pulse Rate 116 H 109 H 106 H Respiratory 18 12 18 Rate Blood Pressure 163/79 149/89 153/84 O2 Sat by Pulse 96 96 96 Oximetry - Reevaluation(s) Reevaluation #1: 03/18/22 22:50 medical record is reviewed Reevaluation #2: 03/18/22 22:50 patients symptoms continue to improve Reevaluation #3: 03/18/22 23:51 She continues to feel resolved feel better here in the ER, patient states that she wants to be discharged Reevaluation #4: 03/18/22 23:51 Patient reiterates that she noticed that her oxygen tank was out when she was at the store earlier today could've contributed to low oxygen's over symptoms Medical Decision Making - Medical Decision Making 72 female to the emergency department for evaluation of tachycardia in the 170s. No diagnosable arrhythmia. Patient's been normal sinus rhythm here in the emergency department without complaint will be discharged home, follow up with cardiology - Lab Data Result diagrams: 03/18/22 21:44 03/18/22 21:44 Lab Results 03/18/22 03/18/22 03/18/22 Range/Units 21:44 21:44 21:44 WBC 21.7 H (3.8-10.6) k/uL RBC 4.31 (3.80-5.40) m/uL Hgb 12.7 (11.4-16.0) gm/dL Hct 39.8 (34.0-46.0) % MCV 92.5 (80.0-100.0) fL MCH 29.5 (25.0-35.0) pg MCHC 31.9 (31.0-37.0) g/dL RDW 14.3 (11.5-15.5) % Plt Count 436 (150-450) k/uL MPV 8.9 Neutrophils % 77 % Lymphocytes % 14 % Monocytes % 6 % Eosinophils % 1 % Basophils % 1 % Neutrophils # 16.8 H (1.3-7.7) k/uL Lymphocytes # 3.0 (1.0-4.8) k/uL Monocytes # 1.3 H (0-1.0) k/uL Eosinophils # 0.3 (0-0.7) k/uL Basophils # 0.1 (0-0.2) k/uL PT 9.8 (9.0-12.0) sec INR 0.9 (<1.2) APTT 21.5 L (22.0-30.0) sec Sodium 130 L (137-145) mmol/L Potassium 4.8 (3.5-5.1) mmol/L Chloride 92 L (98-107) mmol/L Carbon Dioxide 29 (22-30) mmol/L Anion Gap 9 mmol/L BUN 21 H (7-17) mg/dL Creatinine 0.66 (0.52-1.04) mg/dL Est GFR (CKD-EPI)AfAm >90 (>60 ml/min/1.73 sqM) Est GFR (CKD-EPI)NonAf 87 (>60 ml/min/1.73 sqM) Glucose 107 H (74-99) mg/dL Calcium 10.0 (8.4-10.2) mg/dL Phosphorus (2.5-4.5) mg/dL Magnesium 1.7 (1.6-2.3) mg/dL Total Bilirubin 0.5 (0.2-1.3) mg/dL AST 29 (14-36) U/L ALT 28 (4-34) U/L Alkaline Phosphatase 64 (38-126) U/L Troponin I (0.000-0.034) ng/mL Total Protein 6.9 (6.3-8.2) g/dL Albumin 4.1 (3.5-5.0) g/dL TSH (0.465-4.680) mIU/L Urine Color Urine Appearance (Clear) Urine pH (5.0-8.0) Ur Specific [place] (1.001-1.035) Urine Protein (Negative) Urine Glucose (UA) (Negative) Urine Ketones (Negative) Urine Blood (Negative) Urine Nitrite (Negative) Urine Bilirubin (Negative) Urine Urobilinogen (<2.0) mg/dL Ur Leukocyte Esterase (Negative) Urine RBC (0-5) /hpf Urine WBC (0-5) /hpf Ur Squamous Epith Cells (0-4) /hpf Urine Bacteria (None) /hpf Hyaline Casts (0-2) /lpf 03/18/22 03/18/22 03/18/22 Range/Units 21:44 22:01 22:25 WBC (3.8-10.6) k/uL RBC (3.80-5.40) m/uL Hgb (11.4-16.0) gm/dL Hct (34.0-46.0) % MCV (80.0-100.0) fL MCH (25.0-35.0) pg MCHC (31.0-37.0) g/dL RDW (11.5-15.5) % Plt Count (150-450) k/uL MPV Neutrophils % % Lymphocytes % % Monocytes % % Eosinophils % % Basophils % % Neutrophils # (1.3-7.7) k/uL Lymphocytes # (1.0-4.8) k/uL Monocytes # (0-1.0) k/uL Eosinophils # (0-0.7) k/uL Basophils # (0-0.2) k/uL PT (9.0-12.0) sec INR (<1.2) APTT (22.0-30.0) sec Sodium (137-145) mmol/L Potassium (3.5-5.1) mmol/L Chloride (98-107) mmol/L Carbon Dioxide (22-30) mmol/L Anion Gap mmol/L BUN (7-17) mg/dL Creatinine (0.52-1.04) mg/dL Est GFR (CKD-EPI)AfAm (>60 ml/min/1.73 sqM) Est GFR (CKD-EPI)NonAf (>60 ml/min/1.73 sqM) Glucose (74-99) mg/dL Calcium (8.4-10.2) mg/dL Phosphorus 4.0 (2.5-4.5) mg/dL Magnesium (1.6-2.3) mg/dL Total Bilirubin (0.2-1.3) mg/dL AST (14-36) U/L ALT (4-34) U/L Alkaline Phosphatase (38-126) U/L Troponin I 0.017 (0.000-0.034) ng/mL Total Protein (6.3-8.2) g/dL Albumin (3.5-5.0) g/dL TSH 2.700 (0.465-4.680) mIU/L Urine Color Light Yellow Urine Appearance Clear (Clear) Urine pH 6.0 (5.0-8.0) Ur Specific [place] 1.009 (1.001-1.035) Urine Protein Negative (Negative) Urine Glucose (UA) Negative (Negative) Urine Ketones Negative (Negative) Urine Blood Negative (Negative) Urine Nitrite Negative (Negative) Urine Bilirubin Negative (Negative) Urine Urobilinogen <2.0 (<2.0) mg/dL Ur Leukocyte Esterase Trace H (Negative) Urine RBC 1 (0-5) /hpf Urine WBC 2 (0-5) /hpf Ur Squamous Epith Cells <1 (0-4) /hpf Urine Bacteria Rare H (None) /hpf Hyaline Casts 3 H (0-2) /lpf - Radiology Data Radiology results: report reviewed (Chest x-rays negative for acute disease), image reviewed Disposition Clinical Impression: Tachycardia, Palpitations Disposition: HOME SELF-CARE Condition: Good Instructions (If sedation given, give patient instructions): Heart Palpitations (ED) Is patient prescribed a controlled substance at d/c from ED?: No Referrals: Casey Beasley MD [Primary Care Provider] - 1-2 days
[2022-03-18 22:34] LABS: Partial Thromboplastin Time 21.5 sec (22.0-30.0)
[2022-03-18 22:36] LABS: Basophils # (A) 0.1 k/uL (0-0.2); Basophils % (A) 1 %; Eosinophils # (A) 0.3 k/uL (0-0.7); Eosinophils % (A) 1 %; HCT 39.8 % (34.0-46.0); HGB 12.7 gm/dL (11.4-16.0); Lymphocytes % (A) 14 %; MCH 29.5 pg (25.0-35.0); MCHC 31.9 g/dL (31.0-37.0); MCV 92.5 fL (80.0-100.0); Mean Platelet Volume 8.9; Monocytes # (A) 1.3 k/uL (0-1.0); Monocytes % (A) 6 %; Neutrophils # (A) 16.8 k/uL (1.3-7.7); Neutrophils % (A) 77 %; Platelet Count 436 k/uL (150-450); RBC 4.31 m/uL (3.80-5.40); RDW 14.3 % (11.5-15.5); WBC 21.7 k/uL (3.8-10.6)
[2022-03-18 22:38] LABS: Appearance,Urine Clear (Clear); Bacteria,Urine Rare /hpf; Bilirubin,Urine Negative (Negative); Blood,Urine Negative (Negative); Color,Urine Light Yellow; Glucose,Urine (UA) Negative (Negative); Hyaline Casts,Urine 3 /lpf (0-2); Ketones,Urine Negative (Negative); Leukocyte Esterase,Urine Trace (Negative); Nitrite,Urine Negative (Negative); Protein,Urine Negative (Negative); RBC,Urine 1 /hpf (0-5); Specific Gravity,Urine 1.009 (1.001-1.035); Squamous Epithelial Cell,Urine <1 /hpf (0-4); Urobilinogen,Urine <2.0 mg/dL (<2.0); WBC,Urine 2 /hpf (0-5)
[2022-03-18 23:44] VITALS: BP 153/84; PULSE 106; RESP 18
[2022-03-19 00:06] VITALS: TEMP 97.6
== END 2022-03-19 00:02 | disposition home or self-care (01) ==
LOC: EC 19:12
DX: R00.2 Palpitations (principal); R00.0 Tachycardia, unspecified; I10 Essential (primary) hypertension; J44.9 Chronic obstructive pulmonary disease, unspecified; Z79.51 Long term (current) use of inhaled steroids; Z79.899 Other long term (current) drug therapy
CPT/HCPCS: 36415; 71045; 80053; 81001; 83735; 84100; 84443; 84484; 85025; 85610; 85730; 87502; 87634; 87635; 93005; 96360; 99285